=== PATIENT | female | born 1985 | race Caucasian/White ===

== ENCOUNTER 2018-08-20 14:30 | Outpatient (RCR) | payer MEDICARE, SELFPAY ==
--- NOTE | 2017-07-18 10:09 | PT.OTN ---
Addendum entered and electronically signed by Sonia Davila, PT 07/18/17 11:18: Transition note: On July 08, 2017 our therapy services consisting of Speech, Occupational, and Physical Therapy transitioned from the [employer] electronic documentation system to a new [employer] electronic documentation system.?? All documentation prior to July 08 can be found under [employer] saved data. From July 08 forward all medical record documentation will be in [employer]. Original Note: Current Diagnoses Pain in right shoulder (07/18/17) Pain in left hip (07/18/17) Stiffness of right shoulder, not elsewhere classified (07/18/17) Muscle weakness (generalized) (07/18/17) Anesthesia of skin (07/18/17) Abnormal posture (07/18/17) Presence of unspecified artificial shoulder joint (07/18/17) Physical Therapy Treatment Note PT-OP-A Visit Information Start: 07/18/17 09:01 Freq: Status: Active Protocol: Document 07/18/17 09:48 [facility] (Rec: 07/18/17 10:07 [facility] [email or web address]) Out-Patient Physical Therapy Visit Information Visit Information Visit Type Treatment Note Visit Start Time 09:00 Visit Stop Time 09:48 Total Visit Minutes 48 Visit Number 107 Number of POSTING MACHINE OPERATOR Visits 0 Evaluation Information Evaluation Date 04/05/15 PT-OP-C Subjective Start: 07/18/17 09:01 Freq: Status: Active Protocol: Document 07/18/17 09:48 [facility] (Rec: 07/18/17 10:07 [facility] [email or web address]) OP-PT Subjective Patient Comments Patient Comments Pt notes that she is having some joint stiffness, but no pain in the R shoulder. PT-OP-K Range of Motion Start: 07/18/17 09:01 Freq: Status: Active Protocol: Document 07/18/17 09:48 [facility] (Rec: 07/18/17 10:07 [facility] [email or web address]) Shoulder Goniometric Range of Motion Shoulder Measured in Degrees Right Passive Shoulder ROM WFL No Testing Position Supine External Rotation at 90 degrees 50 Abduction PT-OP-Q Treatments Start: 07/18/17 09:01 Freq: Status: Active Protocol: Document 07/18/17 09:48 [facility] (Rec: 07/18/17 10:07 [facility] [email or web address]) Therapeutic Exercises Sitting Exercises 5 Sitting Exercise Name Shoulder D1 flexion Side right Resistance 2 lbs Reps/Minutes 12 reps Comments tactile cuing of scapula 4 Sitting Exercise Name Shoulder horizontal abduction Side bilateral Resistance orange latex-free band Reps/Minutes 12 reps 3 Sitting Exercise Name Shoulder ER Side bilateral Resistance pink latex-free band Reps/Minutes 15 reps 2 Sitting Exercise Name Shoulder abduction Side right Resistance 1 lb Reps/Minutes 12 reps Comments tactile cuing of scapula 1 Sitting Exercise Name Shoulder flexion Side right Resistance 2 lbs Reps/Minutes 8 reps Comments tactile cuing of scapula Manual Therapy Treatment Soft Tissue Mobilization 2 Body Location Upper Trapezius Mobilization Type Strumming Intensity/Depth Moderate Body Position Supine Comments right 1 Body Location Rhomboids Mobilization Type Strain/Counterstrain Intensity/Depth Moderate Body Position Supine Comments right Joint Mobilizations 1 Joint GH joint Direction posterior and inferior Grade III Body Position Supine Reps/Duration 6 min. Manual Techniques 1 Type PROM- flexion, abduction, ER Body Location R shoulder Body Position Supine Reps/Duration 8 each PT-OP-R Modalities Start: 07/18/17 09:01 Freq: Status: Active Protocol: Document 07/18/17 09:48 [facility] (Rec: 07/18/17 10:07 [facility] [email or web address]) Hot Pack/Cold Pack Treatment Cold Pack Location R shoulder Patient Position Supine Treatment Duration (minutes) 10 Patient Tolerance Good Comments héctor PT-OP-T Assessment and Plan Start: 07/18/17 09:01 Freq: Status: Active Protocol: Document 07/18/17 09:48 [facility] (Rec: 07/18/17 10:07 [facility] [email or web address]) Physical Therapy Assessment Rehab Potential Rehabilitation Potential Good Impairments Impairments Activity Tolerance Functional Activities Posture ROM Soft Tissue Mobility Strength Goals 3 Impairment R shoulder ROM Decal Decorator Goal (LTG) R shoulder AROM: flexion 165 degrees (deg.), abduction 165 deg, ER with arm at side 60 deg, IR with arm at side 60 deg. LTG Duration 12 weeks 2 Impairment RUE weakness Decal Decorator Goal (LTG) R scapular elevation 5/5 R shoulder abduction, flexion, extension, ER, IR 4+/5 R elbow flexion, extension 4+/ 5 R wrist flexion, extension 4+/ 5 LTG Duration 12 weeks One Impairment QuickDASH score 45.45 Decal Decorator Goal (LTG) QuickDASH score of 15 or less prior to d/c. LTG Duration 12 weeks Progress Towards Goals Progress Towards Goals Slow Progress due to Medical Issues Assessment Summary Assessment Pt with tension in upper trap and rhomboids of the R shoulder, but good response to manual therapy and improved ROM after STR. Pt requires tactile cuing to prevent excessive upper trap activation with activities, but improved coordination of scapular upward rotation noted this session with lifting activities in elevation. Physical Therapy Plan Frequency and Duration Frequency of Treatment 1x/Week Duration of Treatment 12 weeks Plan of Care Start Date 06/13/17 Plan of Care End Date 09/04/17 Therapeutic Interventions Therapeutic Interventions Home Exercise Program Joint Mobilizations Manual Therapy Neuromuscular Re-education Patient/Caregiver Education Self-Care/Home Management Soft Tissue Mobilization Therapeutic Activities Therapeutic Exercises Modalities Cold Pack/Ice Massage Hot Packs Next Visit Focus/Plan Next Visit Plan continue to progress R shoulder strengthening, ROM as tolerated s/p R TSA.
--- NOTE | 2017-07-25 15:16 | PT.OTN ---
Current Diagnoses Pain in right shoulder (07/25/17) Pain in left hip (07/25/17) Stiffness of right shoulder, not elsewhere classified (07/25/17) Muscle weakness (generalized) (07/25/17) Anesthesia of skin (07/25/17) Abnormal posture (07/25/17) Presence of unspecified artificial shoulder joint (07/25/17) Physical Therapy Treatment Note PT-OP-A Visit Information Start: 07/18/17 09:01 Freq: Status: Active Protocol: Document 07/25/17 09:55 [facility] (Rec: 07/25/17 15:15 [facility] [email or web address]) Out-Patient Physical Therapy Visit Information Visit Information Visit Type Treatment Note Visit Note BP 92/56 at start of session. Visit Start Time 09:15 Visit Stop Time 09:55 Total Visit Minutes 40 Visit Number 108 Number of SAND MILL OPERATOR CORE SAND Visits 0 Evaluation Information Evaluation Date 04/05/15 PT-OP-C Subjective Start: 07/18/17 09:01 Freq: Status: Active Protocol: Document 07/25/17 09:55 [facility] (Rec: 07/25/17 15:15 [facility] [email or web address]) OP-PT Subjective Patient Comments Patient Comments Pt reports she may have had an episode of autonomic dysreflexia at home the other day. She reports it has not happened since but she became faint and had to fall into the couch. No injuries reported. Pt late this a.m. due to doctors appt upstairs. PT-OP-Q Treatments Start: 07/18/17 09:01 Freq: Status: Active Protocol: Document 07/25/17 09:55 [facility] (Rec: 07/25/17 15:15 [facility] [email or web address]) Therapeutic Exercises Sitting Exercises 6 Sitting Exercise Name bicep curls Side right Resistance 3 Reps/Minutes 15 reps 5 Sitting Exercise Name Shoulder D1 flexion Side right Resistance 2 lbs Reps/Minutes 12 reps Comments tactile cuing of scapula 4 Sitting Exercise Name Shoulder horizontal abduction Side bilateral Resistance orange latex-free band Reps/Minutes 15 reps 3 Sitting Exercise Name Shoulder ER Side bilateral Resistance pink latex-free band Reps/Minutes 15 reps Manual Therapy Treatment Joint Mobilizations [address] joint Direction lateral Grade III Body Position Supine Reps/Duration 4 min 1 Joint GH joint Direction posterior and inferior Grade III Body Position Supine Reps/Duration 6 min. Manual Techniques 1 Type PROM- flexion, abduction, ER, IR Body Location R shoulder Body Position Supine Reps/Duration 10 each PT-OP-R Modalities Start: 07/18/17 09:01 Freq: Status: Active Protocol: Document 07/25/17 09:55 [facility] (Rec: 07/25/17 15:15 [facility] [email or web address]) Hot Pack/Cold Pack Treatment Cold Pack Location R shoulder Patient Position Supine Treatment Duration (minutes) 10 Patient Tolerance Good Comments bolster PT-OP-T Assessment and Plan Start: 07/18/17 09:01 Freq: Status: Active Protocol: Document 07/25/17 09:55 [facility] (Rec: 07/25/17 15:15 [facility] [email or web address]) Physical Therapy Assessment Assessment Summary Assessment BP WNL for pt this date, no signs/symptoms of AD noted. Pt tolerated exercise well with improved scapular upward rotation with overhead RUE positioning. Pt still lacks strength and ROM in the RUE, and requires occasional cuing to prevent excessive UT initiation during activity. Physical Therapy Plan Frequency and Duration Frequency of Treatment 1x/Week Duration of Treatment 12 weeks Plan of Care Start Date 06/13/17 Plan of Care End Date 09/04/17 Next Visit Focus/Plan Next Visit Plan continue to progress R shoulder strengthening, ROM as tolerated s/p R TSA.
--- NOTE | 2017-08-01 11:19 | PT.OTN ---
Current Diagnoses Pain in right shoulder (08/01/17) Pain in left hip (08/01/17) Stiffness of right shoulder, not elsewhere classified (08/01/17) Muscle weakness (generalized) (08/01/17) Anesthesia of skin (08/01/17) Abnormal posture (08/01/17) Presence of unspecified artificial shoulder joint (08/01/17) Physical Therapy Treatment Note PT-OP-A Visit Information Start: 07/18/17 09:01 Freq: Status: Active Protocol: Document 08/01/17 09:45 [facility] (Rec: 08/01/17 11:19 [facility] [email or web address]) Out-Patient Physical Therapy Visit Information Visit Information Visit Type Treatment Note Visit Note BP 96/54 at start of session, [place] 90 bpm. Visit Start Time 09:00 Visit Stop Time 09:45 Total Visit Minutes 45 Visit Number 109 Number of CONTRACTING EXECUTIVE Visits 0 Evaluation Information Evaluation Date 04/05/15 PT-OP-C Subjective Start: 07/18/17 09:01 Freq: Status: Active Protocol: Document 08/01/17 09:45 [facility] (Rec: 08/01/17 11:19 [facility] [email or web address]) OP-PT Subjective Patient Comments Patient Comments Pt notes that she is still feeling weak with ER, but no pain reported in R shoulder the past week. PT-OP-Q Treatments Start: 07/18/17 09:01 Freq: Status: Active Protocol: Document 08/01/17 09:45 [facility] (Rec: 08/01/17 11:19 [facility] [email or web address]) Therapeutic Exercises Sitting Exercises 5 Sitting Exercise Name Shoulder D1 flexion Side right Resistance 2 lbs Reps/Minutes 14 reps Comments tactile cuing of scapula 4 Sitting Exercise Name Shoulder horizontal abduction Side bilateral Resistance orange latex-free band Reps/Minutes 15 reps 3 Sitting Exercise Name Shoulder ER Side bilateral Resistance pink latex-free band Reps/Minutes 15 reps Manual Therapy Treatment Soft Tissue Mobilization 1 Body Location Rhomboids Mobilization Type Strumming Intensity/Depth Moderate Body Position Supine Comments right Joint Mobilizations [address] joint Direction lateral Grade III Body Position Supine 1 Joint GH joint Direction posterior and inferior Grade III Body Position Supine Manual Techniques 1 Type PROM- flexion, abduction, ER, IR Body Location R shoulder Body Position Supine Reps/Duration 10 each PT-OP-R Modalities Start: 07/18/17 09:01 Freq: Status: Active Protocol: Document 08/01/17 09:45 [facility] (Rec: 08/01/17 11:19 [facility] [email or web address]) Hot Pack/Cold Pack Treatment Cold Pack Location R shoulder Patient Position Supine Treatment Duration (minutes) 10 Patient Tolerance Good Comments héctor PT-OP-T Assessment and Plan Start: 07/18/17 09:01 Freq: Status: Active Protocol: Document 08/01/17 09:45 [facility] (Rec: 08/01/17 11:19 [facility] [email or web address]) Physical Therapy Assessment Assessment Summary Assessment Pt requires manual assistance for full ROM in D1 flexion pattern, as well as excessive UT activation and shoulder elevation. Physical Therapy Plan Frequency and Duration Frequency of Treatment 1x/Week Duration of Treatment 12 weeks Plan of Care Start Date 06/13/17 Plan of Care End Date 09/04/17 Next Visit Focus/Plan Next Note Type Treatment Note Next Visit Plan progress ROM (Active and passive), shoulder girdle strengthening. Please Sign and Return: I have reviewed this Plan of Care and certify that the skilled therapy services above are required to meet the patient???s needs. Physician Signature Date Printed Name and Credentials Clinical Instructor Signature Printed Name and Credentials
--- NOTE | 2017-08-15 11:35 | PT.OTN ---
Current Diagnoses Pain in right shoulder (08/15/17) Pain in left hip (08/15/17) Stiffness of right shoulder, not elsewhere classified (08/15/17) Muscle weakness (generalized) (08/15/17) Anesthesia of skin (08/15/17) Abnormal posture (08/15/17) Presence of unspecified artificial shoulder joint (08/15/17) Physical Therapy Treatment Note PT-OP-A Visit Information Start: 07/18/17 09:01 Freq: Status: Active Protocol: Document 08/15/17 09:45 [facility] (Rec: 08/15/17 11:35 [facility] [email or web address]) Out-Patient Physical Therapy Visit Information Visit Information Visit Type Treatment Note Visit Start Time 09:00 Visit Stop Time 09:52 Total Visit Minutes 52 Visit Number 110 Number of CATALYST SUPERVISOR Visits 0 Evaluation Information Evaluation Date 04/05/15 PT-OP-C Subjective Start: 07/18/17 09:01 Freq: Status: Active Protocol: Document 08/15/17 09:45 [facility] (Rec: 08/15/17 11:35 [facility] [email or web address]) OP-PT Subjective Patient Comments Patient Comments Pt reports she has gained 6 lbs over the past couple of weeks with her , it has been a little more difficult maintaining her body positioning/posture. PT-OP-K Range of Motion Start: 07/18/17 09:01 Freq: Status: Active Protocol: Document 07/18/17 09:48 [facility] (Rec: 07/18/17 10:07 [facility] [email or web address]) Shoulder Goniometric Range of Motion Shoulder Measured in Degrees Right Passive Shoulder ROM WFL No Testing Position Supine External Rotation at 90 degrees 50 Abduction PT-OP-Q Treatments Start: 07/18/17 09:01 Freq: Status: Active Protocol: Document 08/15/17 09:45 [facility] (Rec: 08/15/17 11:35 [facility] [email or web address]) Therapeutic Exercises Sitting Exercises 6 Sitting Exercise Name bicep curls Side right Resistance 3 Reps/Minutes 15 reps 4 Sitting Exercise Name Shoulder horizontal abduction Side bilateral Resistance orange latex-free band Reps/Minutes 15 reps 2 Sitting Exercise Name Shoulder abduction Side right Resistance 1 lb Reps/Minutes 14 reps Comments tactile cuing of scapula 1 Sitting Exercise Name Shoulder flexion Side right Resistance 1 lbs Reps/Minutes 15 reps Comments tactile cuing of shoulder Manual Therapy Treatment Soft Tissue Mobilization 2 Body Location Upper Trapezius Mobilization Type Strumming Intensity/Depth Moderate Body Position Supine Comments right 1 Body Location Rhomboids Mobilization Type Strumming Intensity/Depth Moderate Body Position Supine Comments right Joint Mobilizations [address] joint Direction lateral Grade III Body Position Supine Manual Techniques 1 Type PROM- flexion, abduction, ER, IR Body Location R shoulder Body Position Supine Reps/Duration 10 each PT-OP-R Modalities Start: 07/18/17 09:01 Freq: Status: Active Protocol: Document 08/15/17 09:45 [facility] (Rec: 08/15/17 11:35 [email or web address] Hot Pack/Cold Pack Treatment Cold Pack Location R shoulder Patient Position Supine Treatment Duration (minutes) 10 Patient Tolerance Good Comments héctor PT-OP-T Assessment and Plan Start: 07/18/17 09:01 Freq: Status: Active Protocol: Document 08/15/17 09:45 [facility] (Rec: 08/15/17 11:35 [email or web address] Physical Therapy Assessment Assessment Summary Assessment Pt is able to get her RUE >90 degrees with 1 lb resistance, and ~90 degrees with shoulder abduction and 1 lb resistance, but fatigues quickly. Pt requires cuing for R shoulder and scapular positioning during activities. Physical Therapy Plan Frequency and Duration Frequency of Treatment 1x/Week Duration of Treatment 12 weeks Plan of Care Start Date 06/13/17 Plan of Care End Date 09/04/17 Next Visit Focus/Plan Next Note Type Treatment Note Next Visit Plan prog. ROM and strength s/p R TSA. Please Sign and Return: I have reviewed this Plan of Care and certify that the skilled therapy services above are required to meet the patient?s needs. Physician Signature Date Printed Name and Credentials Clinical Instructor Signature Printed Name and Credentials
--- NOTE | 2017-08-22 13:29 | PT.OTN ---
Current Diagnoses Pain in right shoulder (08/22/17) Pain in left hip (08/22/17) Stiffness of right shoulder, not elsewhere classified (08/22/17) Muscle weakness (generalized) (08/22/17) Anesthesia of skin (08/22/17) Abnormal posture (08/22/17) Presence of unspecified artificial shoulder joint (08/22/17) Physical Therapy Treatment Note PT-OP-A Visit Information Start: 07/18/17 09:01 Freq: Status: Active Protocol: Document 08/22/17 09:45 [facility] (Rec: 08/22/17 13:28 [facility] [email or web address]) Out-Patient Physical Therapy Visit Information Visit Information Visit Type Treatment Note Visit Start Time 09:00 Visit Stop Time 09:45 Total Visit Minutes 45 Visit Number 111 Number of CHEF UNDER Visits 0 Evaluation Information Evaluation Date 04/05/15 PT-OP-C Subjective Start: 07/18/17 09:01 Freq: Status: Active Protocol: Document 08/22/17 09:45 [facility] (Rec: 08/22/17 13:28 [facility] [email or web address]) OP-PT Subjective Patient Comments Patient Comments Pt reports soreness after last session but no pain in the R shoulder. PT-OP-K Range of Motion Start: 07/18/17 09:01 Freq: Status: Active Protocol: Document 07/18/17 09:48 [facility] (Rec: 07/18/17 10:07 [facility] [email or web address]) Shoulder Goniometric Range of Motion Shoulder Measured in Degrees Right Passive Shoulder ROM WFL No Testing Position Supine External Rotation at 90 degrees 50 Abduction PT-OP-Q Treatments Start: 07/18/17 09:01 Freq: Status: Active Protocol: Document 08/22/17 09:45 [facility] (Rec: 08/22/17 13:28 [facility] [email or web address]) Therapeutic Exercises Sitting Exercises 7 Sitting Exercise Name Shoulder extension and rows Side bilateral Resistance orange latex free Reps/Minutes 15 each 4 Sitting Exercise Name Shoulder horizontal abduction Side bilateral Resistance orange latex-free band Reps/Minutes 15 reps 3 Sitting Exercise Name Shoulder ER Side bilateral Resistance pink latex-free band Reps/Minutes 15 reps 2 Sitting Exercise Name Shoulder abduction Side right Resistance 2 lbs Reps/Minutes 10 reps Comments AROM then AAROM to full ROM 1 Sitting Exercise Name Shoulder flexion Side right Resistance 2 lbs Reps/Minutes 10 reps Comments AROM then AAROM to full ROM Manual Therapy Treatment Soft Tissue Mobilization 2 Body Location Upper Trapezius Mobilization Type Strumming Intensity/Depth Moderate Body Position Supine Comments right Joint Mobilizations 1 Joint GH joint Direction posterior and inferior Grade III Body Position Supine Manual Techniques 1 Type PROM- flexion, abduction, ER, IR Body Location R shoulder Body Position Supine Reps/Duration 10 each PT-OP-R Modalities Start: 07/18/17 09:01 Freq: Status: Active Protocol: Document 08/22/17 09:45 [facility] (Rec: 08/22/17 13:28 [email or web address] Hot [facility]/Cold Pack Treatment Cold Pack Location R shoulder Patient Position Supine Treatment Duration (minutes) 10 Patient Tolerance Good Comments héctor PT-OP-T Assessment and Plan Start: 07/18/17 09:01 Freq: Status: Active Protocol: Document 08/22/17 09:45 [facility] (Rec: 08/22/17 13:28 [email or web address] Physical Therapy Assessment Assessment Summary Assessment Pt able to increase resistance of shoulder flexion and abduction in seated position, but does require AAROM to achieve full end range with these activities due to impaired strength. Physical Therapy Plan Frequency and Duration Frequency of Treatment 1x/Week Duration of Treatment 12 weeks Plan of Care Start Date 06/13/17 Plan of Care End Date 09/04/17 Next Visit Focus/Plan Next Note Type Progress Note Next Visit Plan reassess objective measures. Please Sign and Return: I have reviewed this Plan of Care and certify that the skilled therapy services above are required to meet the patient?s needs. Physician Signature Date Printed Name and Credentials Clinical Instructor Signature Printed Name and Credentials
--- NOTE | 2017-08-29 09:45 | PT.OTN ---
Current Diagnoses Pain in right shoulder (08/29/17) Pain in left hip (08/29/17) Stiffness of right shoulder, not elsewhere classified (08/29/17) Muscle weakness (generalized) (08/29/17) Anesthesia of skin (08/29/17) Abnormal posture (08/29/17) Presence of unspecified artificial shoulder joint (08/29/17) Physical Therapy Treatment Note PT-OP-A Visit Information Start: 07/18/17 09:01 Freq: Status: Active Protocol: Document 08/29/17 09:45 [facility] (Rec: 08/31/17 14:13 [facility] [email or web address]) Out-Patient Physical Therapy Visit Information Visit Information Visit Type Treatment Note Visit Start Time 09:00 Visit Stop Time 09:55 Total Visit Minutes 55 Visit Number 112 (G codes @ 122) Number of CANDY CATCHER Visits 0 Evaluation Information Evaluation Date 04/05/15 PT-OP-B Current Condition Start: 08/31/17 13:42 Freq: Status: Active Protocol: Document 08/29/17 09:45 [facility] (Rec: 08/31/17 14:13 [facility] [email or web address]) Current Condition History of Current Condition Onset Date 12/14/14 History of Current Condition Pt presents to physical therapy s/p R TSA 12/14/2014 @ [facility]. Pt is R hand dominant. Pt uses a manual w/c for mobility, due to paraplegia at the level of T6. Pt is , mother is caregiver. Pt required a short term NG tube post surgery, then d/c to [facility] on 12/24/2014 . Pt then developed staph infection while at [facility]. Pt d/ c home and started PT on . Pt initiated outpatient physical therapy April 04, 2015. 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 Pt is currently with her first child. PT-OP-C Subjective Start: 07/18/17 09:01 Freq: Status: Active Protocol: Document 08/29/17 09:45 RCC (Rec: 08/31/17 14:13 RCC [email or web address]) OP-PT Subjective Patient Comments Patient Comments Pt notes some discomfort with lifting her RUE in the anterior shoulder, notes that it feels stiff. Her at this time is going very well per mother and pt. PT-OP-F Manual Assessment Start: 08/31/17 13:42 Freq: Status: Active Protocol: Document 08/29/17 09:45 RCC (Rec: 08/31/17 14:13 RCC [email or web address]) Manual Assessments Soft Tissue Assessment Soft Tissue Mobility Assessment moderate tenderness to palpation R biceps long head and tendon. PT-OP-G Mobility & Gait Start: 08/31/17 13:42 Freq: Status: Active Protocol: Document 08/29/17 09:45 RCC (Rec: 08/31/17 14:13 RCC [email or web address]) OP Mobility Evaluation Transfers Bed to Chair Transfers Mod Assist of 1 due to . PT-OP-J Posture/Palpation/Skin Start: 08/31/17 13:42 Freq: Status: Active Protocol: Document 08/29/17 09:45 RCC (Rec: 08/31/17 14:13 RCC [email or web address]) Palpation Assessment Location One Palpation Location R biceps long head and tendon Palpation Findings Tenderness Palpation Details negative Yuniel's sign, no bruising. Musculature intact. PT-OP-K Range of Motion Start: 07/18/17 09:01 Freq: Status: Active Protocol: Document 08/29/17 09:45 RCC (Rec: 08/31/17 14:13 RCC [email or web address]) Shoulder Goniometric Range of Motion Shoulder Measured in Degrees Right Active Testing Position Supine Flexion 122 Abduction 124 External Rotation at 45 degrees 36 Abduction Right Passive Testing Position Supine Flexion 145 Abduction 150 External Rotation at 45 degrees 60 Abduction Shoulder ROM Limitations Comments sitting AROM: abduction 104 deg, flexion 96 deg. (R shoulder) PT-OP-M Strength Start: 08/31/17 13:42 Freq: Status: Active Protocol: Document 08/29/17 09:45 RCC (Rec: 08/31/17 14:13 [facility] [email or web address]) Shoulder Strength Shoulder Manual Muscle Testing Right Flexion 4 Good Abduction (C5) 4+ Good+ External Rotation 4 Good Internal Rotation 5 Normal Elbow/Forearm Strength Elbow and Forearm Manual Muscle Testing Right Flexion (C6) 4+ Good+ Extension (C7) 4 Good Comments mild discomfort with resisted elbow flexion @ biceps tendon. Hand Applications Administrator/Pinch Strength Hand Dominance Hand Dominance Right Hand Strength Right Applications Administrator (lbs) 37 Comments Arm at side, elbow flexed 90 deg. Left Applications Administrator (lbs) 51 Comments Arm at side, elbow flexed 90 deg. PT-OP-Q Treatments Start: 07/18/17 09:01 Freq: Status: Active Protocol: Document 08/29/17 09:45 [facility] (Rec: 08/31/17 14:13 [facility] [email or web address]) Therapeutic Activity Therapeutic Activity 1 Name w/c to bed transfer, sit to supine Comments mod assist x1 Manual Therapy Treatment Soft Tissue Mobilization 3 Body Location R biceps long head and tendon Mobilization Type Cross-Friction Myofascial Release Intensity/Depth Moderate Body Position Supine Comments 15 min. Joint Mobilizations [address] joint Direction lateral Grade III Body Position Supine 1 Joint GH joint Direction posterior and inferior Grade III Body Position Supine Manual Techniques 1 Type PROM- flexion, abduction, ER, IR Body Location R shoulder Body Position Supine Reps/Duration 10 each Other Other Manual Treatments R shoulder ROM, UE MMT, palpation. 10 min PT-OP-R Modalities Start: 07/18/17 09:01 Freq: Status: Active Protocol: Document 08/29/17 09:45 [facility] (Rec: 08/31/17 14:13 [facility] [email or web address]) Hot Pack/Cold Pack Treatment Cold Pack Location R shoulder Patient Position Supine Treatment Duration (minutes) 10 Patient Tolerance Good Comments aguilarstestrella PT-OP-T Assessment and Plan Start: 07/18/17 09:01 Freq: Status: Active Protocol: Document 08/29/17 09:45 [facility] (Rec: 08/31/17 14:13 [facility] [email or web address]) Physical Therapy Assessment Goals 3 Impairment R shoulder ROM Carrier Driver Goal (LTG) R shoulder AROM: flexion 165 degrees (deg.), abduction 165 deg, ER with arm at side 60 deg, IR with arm at side 60 deg. LTG Duration 12 weeks 2 Impairment RUE weakness Fdc Goal (LTG) R scapular elevation 5/5 R shoulder abduction, flexion, extension, ER, IR 4+/5 R elbow flexion, extension 4+/ 5 R wrist flexion, extension 4+/ 5 LTG Duration 12 weeks One Impairment QuickDASH score 45.45 Fdc Goal (LTG) QuickDASH score of 15 or less prior to d/c. LTG Duration 12 weeks Progress Towards Goals Progress Towards Goals Slow Progress due to Medical Issues Progress Comments Pt with significant limitations in R shoulder ROM and strength prior to TSA ( injured nerve of the cervical spine causing atrophy and weakness of R shoulder girdle) , multiple medical complexities including T6 paraplegia. 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 Pt's ROM is still limited, and AROM seated with flexion likely slightly decreased this session due to tenderness in the long head of the biceps tendon. No mechanism of injury, but musculature is intact, therefore likely a strain of the muscle and over-activity of the biceps due to weakness in the R shoulder. Pt appears to have good compliance with HEP, she is on a lifting restriction due to her current which now she is requiring increased assistance with transfers. Pt's ER ROM improved significantly to 36 degrees AROM and 60 degrees PROM. Pt continues to demonstrate improvements with skilled outpatient physical therapy, and would greatly benefit from the continuation of physical therapy to continue to progress toward goals including ROM and strength gains of the R shoulder. Physical Therapy Plan Frequency and Duration Frequency of Treatment 1x/Week Duration of Treatment 12 weeks Plan of Care Start Date 08/29/17 Plan of Care End Date 11/21/17 Therapeutic Interventions Therapeutic Interventions Home Exercise Program Joint Mobilizations Manual Therapy Neuromuscular Re-education Patient/Caregiver Education Self-Care/Home Management Soft Tissue Mobilization Taping Therapeutic Activities Therapeutic Exercises Wheelchair Management Modalities Cold Pack/Ice Massage Hot Packs Next Visit Focus/Plan Next Note Type Treatment Note Next Visit Plan continue to progress ROM and strength of the R shoulder.
--- NOTE | 2017-08-29 09:45 | PT.OPPOC ---
Current Diagnoses Pain in right shoulder (08/29/17) Pain in left hip (08/29/17) Stiffness of right shoulder, not elsewhere classified (08/29/17) Muscle weakness (generalized) (08/29/17) Anesthesia of skin (08/29/17) Abnormal posture (08/29/17) Presence of unspecified artificial shoulder joint (08/29/17) Provider Visit Care Team Role Provider Type Cathleen Alfaro MD Attending Provider Physician Family Provider Primary Care Provider Specialty: Family Practice Address: [address] [place] [address], [facility] Email: Plan Of Care PT-OP-T Assessment and Plan Start: 07/18/17 09:01 Freq: Status: Active Protocol: Document 08/29/17 09:45 RCC (Rec: 08/31/17 14:13 [facility] [email or web address]) Physical Therapy Assessment Goals 3 Impairment R shoulder ROM Senior Power Scheduler Goal (LTG) R shoulder AROM: flexion 165 degrees (deg.), abduction 165 deg, ER with arm at side 60 deg, IR with arm at side 60 deg. LTG Duration 12 weeks 2 Impairment RUE weakness Senior Power Scheduler Goal (LTG) R scapular elevation 5/5 R shoulder abduction, flexion, extension, ER, IR 4+/5 R elbow flexion, extension 4+/ 5 R wrist flexion, extension 4+/ 5 LTG Duration 12 weeks One Impairment QuickDASH score 45.45 Senior Care Goal (LTG) QuickDASH score of 15 or less prior to d/c. LTG Duration 12 weeks Progress Towards Goals Progress Towards Goals Slow Progress due to Medical Issues Progress Comments Pt with significant limitations in R shoulder ROM and strength prior to TSA ( injured nerve of the cervical spine causing atrophy and weakness of R shoulder girdle) , multiple medical complexities including T6 paraplegia. 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 Pt's ROM is still limited, and AROM seated with flexion likely slightly decreased this session due to tenderness in the long head of the biceps tendon. No mechanism of injury, but musculature is intact, therefore likely a strain of the muscle and over-activity of the biceps due to weakness in the R shoulder. Pt appears to have good compliance with HEP, she is on a lifting restriction due to her current which now she is requiring increased assistance with transfers. Pt's ER ROM improved significantly to 36 degrees AROM and 60 degrees PROM. Pt continues to demonstrate improvements with skilled outpatient physical therapy, and would greatly benefit from the continuation of physical therapy to continue to progress toward goals including ROM and strength gains of the R shoulder. Physical Therapy Plan Frequency and Duration Frequency of Treatment 1x/Week Duration of Treatment 12 weeks Plan of Care Start Date 08/29/17 Plan of Care End Date 11/21/17 Therapeutic Interventions Therapeutic Interventions Home Exercise Program Joint Mobilizations Manual Therapy Neuromuscular Re-education Patient/Caregiver Education Self-Care/Home Management Soft Tissue Mobilization Taping Therapeutic Activities Therapeutic Exercises Wheelchair Management Modalities Cold Pack/Ice Massage Hot Packs Next Visit Focus/Plan Next Note Type Treatment Note Next Visit Plan continue to progress ROM and strength of the R shoulder. Plan of Care Dates Plan of Care Start Date 08/29/17 Plan of Care End Date 11/21/17 Please Sign and Return: I have reviewed this Plan of Care and certify that the skilled therapy services above are required to meet the patient?s needs. Physician Signature Date Printed Name and Credentials Clinical Instructor Signature Printed Name and Credentials
--- NOTE | 2017-09-26 12:00 | PT.OTN ---
Current Diagnoses Pain in right shoulder (09/26/17) Pain in left hip (09/26/17) Stiffness of right shoulder, not elsewhere classified (09/26/17) Muscle weakness (generalized) (09/26/17) Anesthesia of skin (09/26/17) Abnormal posture (09/26/17) Presence of unspecified artificial shoulder joint (09/26/17) Physical Therapy Treatment Note PT-OP-A Visit Information Start: 07/18/17 09:01 Freq: Status: Active Protocol: Document 09/26/17 12:00 RCC (Rec: 09/26/17 13:45 [facility] [email or web address]) Out-Patient Physical Therapy Visit Information Visit Information Visit Type Treatment Note Visit Start Time 11:15 Visit Stop Time 12:05 Total Visit Minutes 50 Visit Number 113 (G codes @ 122) Number of REFINERY OPERATOR LIGHT ENDS RECOVERY Visits 0 Evaluation Information Evaluation Date 04/05/15 PT-OP-B Current Condition Start: 08/31/17 13:42 Freq: Status: Active Protocol: Document 08/29/17 09:45 [facility] (Rec: 08/31/17 14:13 [facility] [email or web address]) Current Condition History of Current Condition Onset Date 12/14/14 History of Current Condition Pt presents to physical therapy s/p R TSA 12/14/2014 @ [facility]. Pt is R hand dominant. Pt uses a manual w/c for mobility, due to paraplegia at the level of T6. Pt is , mother is caregiver. Pt required a short term NG tube post surgery, then d/c to [facility] on 12/24/2014 . Pt then developed staph infection while at [facility]. Pt d/ c home and started PT on . Pt initiated outpatient physical therapy April 04, 2015. 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 Pt is currently with her first child. PT-OP-C Subjective Start: 07/18/17 09:01 Freq: Status: Active Protocol: Document 09/26/17 12:00 [facility] (Rec: 09/26/17 13:45 [facility] [email or web address]) OP-PT Subjective Patient Comments Patient Comments Pt notes her biceps is feeling a little better, her shoulder feels stiff today though. PT-OP-F Manual Assessment Start: 08/31/17 13:42 Freq: Status: Active Protocol: Document 08/29/17 09:45 [facility] (Rec: 08/31/17 14:13 [facility] [email or web address]) Manual Assessments Soft Tissue Assessment Soft Tissue Mobility Assessment moderate tenderness to palpation R biceps long head and tendon. PT-OP-G Mobility & Gait Start: 08/31/17 13:42 Freq: Status: Active Protocol: Document 08/29/17 09:45 [facility] (Rec: 08/31/17 14:13 [facility] [email or web address]) OP Mobility Evaluation Transfers Bed to Chair Transfers Mod Assist of 1 due to . PT-OP-J Posture/Palpation/Skin Start: 08/31/17 13:42 Freq: Status: Active Protocol: Document 08/29/17 09:45 RCC (Rec: 08/31/17 14:13 RCC [email or web address]) Palpation Assessment Location One Palpation Location R biceps long head and tendon Palpation Findings Tenderness Palpation Details negative Yuniel's sign, no bruising. Musculature intact. PT-OP-K Range of Motion Start: 07/18/17 09:01 Freq: Status: Active Protocol: Document 08/29/17 09:45 RCC (Rec: 08/31/17 14:13 RCC [email or web address]) Shoulder Goniometric Range of Motion Shoulder Measured in Degrees Right Active Testing Position Supine Flexion 122 Abduction 124 External Rotation at 45 degrees 36 Abduction Right Passive Testing Position Supine Flexion 145 Abduction 150 External Rotation at 45 degrees 60 Abduction Shoulder ROM Limitations Comments sitting AROM: abduction 104 deg, flexion 96 deg. (R shoulder) PT-OP-M Strength Start: 08/31/17 13:42 Freq: Status: Active Protocol: Document 08/29/17 09:45 RCC (Rec: 08/31/17 14:13 [facility] [email or web address]) Shoulder Strength Shoulder Manual Muscle Testing Right Flexion 4 Good Abduction (C5) 4+ Good+ External Rotation 4 Good Internal Rotation 5 Normal Elbow/Forearm Strength Elbow and Forearm Manual Muscle Testing Right Flexion (C6) 4+ Good+ Extension (C7) 4 Good Comments mild discomfort with resisted elbow flexion @ biceps tendon. Hand Aircraft Line Assembler/Pinch Strength Hand Dominance Hand Dominance Right Hand Strength Right Aircraft Line Assembler (lbs) 37 Comments Arm at side, elbow flexed 90 deg. Left Aircraft Line Assembler (lbs) 51 Comments Arm at side, elbow flexed 90 deg. PT-OP-Q Treatments Start: 07/18/17 09:01 Freq: Status: Active Protocol: Document 09/26/17 12:00 RCC (Rec: 09/26/17 13:45 [facility] [email or web address]) Therapeutic Exercises Sitting Exercises 7 Sitting Exercise Name Shoulder extension and rows Side bilateral Resistance orange latex free Reps/Minutes 15 each 4 Sitting Exercise Name Shoulder horizontal abduction Side bilateral Resistance orange latex-free band Reps/Minutes 15 reps 3 Sitting Exercise Name Shoulder ER Side bilateral Resistance pink latex-free band Reps/Minutes 15 reps Therapeutic Activity Therapeutic Activity 1 Name w/c to bed transfer with slide board x3, sit to supine Comments mod assist x1 Manual Therapy Treatment Soft Tissue Mobilization 3 Body Location R biceps long head and tendon Mobilization Type Cross-Friction Myofascial Release Intensity/Depth Moderate Body Position Supine Comments 6 min. Joint Mobilizations [address] joint Direction lateral Grade III Body Position Supine 1 Joint GH joint Direction posterior and inferior Grade III Body Position Supine Manual Techniques 1 Type PROM- flexion, abduction, ER, IR Body Location R shoulder Body Position Supine Reps/Duration 10 each PT-OP-R Modalities Start: 07/18/17 09:01 Freq: Status: Active Protocol: Document 09/26/17 12:00 [facility] (Rec: 09/26/17 13:45 [facility] [email or web address]) Hot Pack/Cold Pack Treatment Cold Pack Location R shoulder Patient Position Supine Treatment Duration (minutes) 10 Patient Tolerance Good Comments héctor PT-OP-T Assessment and Plan Start: 07/18/17 09:01 Freq: Status: Active Protocol: Document 09/26/17 12:00 [facility] (Rec: 09/26/17 13:45 [facility] [email or web address]) Physical Therapy Assessment Assessment Summary Assessment Pt initially with mild decrease in ROM, limited by soft tissue restriction but able to decrease restriction with manual ROM. Pt requires increased assistance with transfers due to increased weight gain and change COG due to . Physical Therapy Plan Frequency and Duration Frequency of Treatment 1x/Week Duration of Treatment 12 weeks Plan of Care Start Date 08/29/17 Plan of Care End Date 11/21/17 Next Visit Focus/Plan Next Note Type Treatment Note Next Visit Plan continue to progress ROM and strength of the R shoulder.
--- NOTE | 2017-10-02 10:30 | PT.OTN ---
Current Diagnoses Pain in right shoulder (10/02/17) Pain in left hip (10/02/17) Stiffness of right shoulder, not elsewhere classified (10/02/17) Muscle weakness (generalized) (10/02/17) Anesthesia of skin (10/02/17) Abnormal posture (10/02/17) Presence of unspecified artificial shoulder joint (10/02/17) Physical Therapy Treatment Note PT-OP-A Visit Information Start: 07/18/17 09:01 Freq: Status: Active Protocol: Document 10/02/17 10:30 RCC (Rec: 10/02/17 10:48 [facility] [email or web address]) Out-Patient Physical Therapy Visit Information Visit Information Visit Type Treatment Note Visit Start Time 09:45 Visit Stop Time 10:40 Total Visit Minutes 55 Visit Number 114 (G codes @ 122) Number of SCOWMAN Visits 0 Evaluation Information Evaluation Date 04/05/15 PT-OP-B Current Condition Start: 08/31/17 13:42 Freq: Status: Active Protocol: Document 08/29/17 09:45 RCC (Rec: 08/31/17 14:13 RCC [email or web address]) Current Condition History of Current Condition Onset Date 12/14/14 History of Current Condition Pt presents to physical therapy s[facility]p [facility] Pt is R hand dominant. Pt uses a manual w/c for mobility, due to paraplegia at the level of T6. Pt is , mother is caregiver. Pt required a short term NG tube post surgery, then d/c to [facility] on 12/24/2014 . Pt then developed staph infection while at [facility]. Pt d/ c home and started PT on . Pt initiated outpatient physical therapy April 04, 2015. 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 Pt is currently with her first child. PT-OP-C Subjective Start: 07/18/17 09:01 Freq: Status: Active Protocol: Document 10/02/17 10:30 RCC (Rec: 10/02/17 10:48 RCC [email or web address]) OP-PT Subjective Patient Comments Patient Comments Pt states that she is feeling a little less stiff. She has had some pain into the R lateral elbow. PT-OP-F Manual Assessment Start: 08/31/17 13:42 Freq: Status: Active Protocol: Document 10/02/17 10:30 RCC (Rec: 10/02/17 10:48 RCC [email or web address]) Manual Assessments Soft Tissue Assessment Soft Tissue Mobility Assessment mild tenderness over biceps long head tendon and lateral extensor bundle on the R. PT-OP-G Mobility & Gait Start: 08/31/17 13:42 Freq: Status: Active Protocol: Document 08/29/17 09:45 RCC (Rec: 08/31/17 14:13 RCC [email or web address]) OP Mobility Evaluation Transfers Bed to Chair Transfers Mod Assist of 1 due to . PT-OP-J Posture/Palpation/Skin Start: 08/31/17 13:42 Freq: Status: Active Protocol: Document 08/29/17 09:45 RCC (Rec: 08/31/17 14:13 RCC [email or web address]) Palpation Assessment Location One Palpation Location R biceps long head and tendon Palpation Findings Tenderness Palpation Details negative Yuniel's sign, no bruising. Musculature intact. PT-OP-K Range of Motion Start: 07/18/17 09:01 Freq: Status: Active Protocol: Document 08/29/17 09:45 RCC (Rec: 08/31/17 14:13 RCC [email or web address]) Shoulder Goniometric Range of Motion Shoulder Measured in Degrees Right Active Testing Position Supine Flexion 122 Abduction 124 External Rotation at 45 degrees 36 Abduction Right Passive Testing Position Supine Flexion 145 Abduction 150 External Rotation at 45 degrees 60 Abduction Shoulder ROM Limitations Comments sitting AROM: abduction 104 deg, flexion 96 deg. (R shoulder) PT-OP-M Strength Start: 08/31/17 13:42 Freq: Status: Active Protocol: Document 08/29/17 09:45 RCC (Rec: 08/31/17 14:13 RCC [email or web address]) Shoulder Strength Shoulder Manual Muscle Testing Right Flexion 4 Good Abduction (C5) 4+ Good+ External Rotation 4 Good Internal Rotation 5 Normal Elbow/Forearm Strength Elbow and Forearm Manual Muscle Testing Right Flexion (C6) 4+ Good+ Extension (C7) 4 Good Comments mild discomfort with resisted elbow flexion @ biceps tendon. Hand Physiotherapy Assistant/Pinch Strength Hand Dominance Hand Dominance Right Hand Strength Right Physiotherapy Assistant (lbs) 37 Comments Arm at side, elbow flexed 90 deg. Left Physiotherapy Assistant (lbs) 51 Comments Arm at side, elbow flexed 90 deg. PT-OP-Q Treatments Start: 07/18/17 09:01 Freq: Status: Active Protocol: Document 10/02/17 10:30 RCC (Rec: 10/02/17 10:48 RCC [email or web address]) Therapeutic Exercises Sitting Exercises 7 Sitting Exercise Name Shoulder extension and rows Side bilateral Resistance orange latex free Reps/Minutes 15 each 5 Sitting Exercise Name Shoulder D1 flexion Side right Resistance 2 lbs Reps/Minutes 15 reps Comments tactile cuing of scapula 3 Sitting Exercise Name Shoulder ER Side bilateral Resistance pink latex-free band Reps/Minutes 15 reps Therapeutic Activity Therapeutic Activity 1 Name w/c to bed transfer with slide board x2, sit to supine Comments mod assist x1 Manual Therapy Treatment Soft Tissue Mobilization 4 Body Location R infra and supraspinatus Mobilization Type Strumming Intensity/Depth Moderate Body Position Sitting 3 Body Location R biceps long head and tendon Mobilization Type Cross-Friction Myofascial Release Intensity/Depth Moderate Body Position Sitting 1 Body Location Rhomboids Mobilization Type Strumming Intensity/Depth Moderate Body Position Supine Comments right Joint Mobilizations [address] joint Direction lateral, upward rotation, medial Grade III Body Position Supine Manual Techniques 1 Type PROM- flexion, abduction, ER, IR Body Location R shoulder Body Position Supine Reps/Duration 10 each PT-OP-R Modalities Start: 07/18/17 09:01 Freq: Status: Active Protocol: Document 10/02/17 10:30 RCC (Rec: 10/02/17 10:48 [facility] [email or web address]) Hot Pack/Cold Pack Treatment Cold Pack Location R shoulder Patient Position Supine Treatment Duration (minutes) 10 Patient Tolerance Good Comments héctor PT-OP-T Assessment and Plan Start: 07/18/17 09:01 Freq: Status: Active Protocol: Document 10/02/17 10:30 RCC (Rec: 10/02/17 10:48 [facility] [email or web address]) Physical Therapy Assessment Assessment Summary Assessment Pt with increased push-off on first 2 movements of slide board transfer, but still requiring assistance with final 1-2 movements to get completely on the bed. Tenderness in biceps is improving, and lateral elbow discomfort likely due to referred pain from R shoulder. Physical Therapy Plan Frequency and Duration Frequency of Treatment 1x/Week Duration of Treatment 12 weeks Plan of Care Start Date 08/29/17 Plan of Care End Date 11/21/17 Next Visit Focus/Plan Next Note Type Treatment Note Next Visit Plan prog. ROM and strength s/p R TSA.
--- NOTE | 2018-02-04 16:45 | PT.OTN ---
Current Diagnoses Pain in right shoulder (02/04/18) Pain in left hip (02/04/18) Stiffness of right shoulder, not elsewhere classified (02/04/18) Muscle weakness (generalized) (02/04/18) Anesthesia of skin (02/04/18) Abnormal posture (02/04/18) Presence of unspecified artificial shoulder joint (02/04/18) Physical Therapy Treatment Note PT-OP-A Visit Information Start: 07/18/17 09:01 Freq: Status: Active Protocol: Document 02/04/18 16:45 RCC (Rec: 02/05/18 10:52 RCC [email or web address]) Out-Patient Physical Therapy Visit Information Visit Information Visit Type Treatment Note Visit Start Time 16:18 Visit Stop Time 16:45 Total Visit Minutes 27 Visit Number 115 (G codes @ 125) Number of SOCIAL WORK ASSOCIATE Visits 0 Evaluation Information Evaluation Date 04/05/15 PT-OP-B Current Condition Start: 08/31/17 13:42 Freq: Status: Active Protocol: Document 02/04/18 16:45 RCC (Rec: 02/05/18 10:52 RCC [email or web address]) Current Condition History of Current Condition Onset Date 12/14/14 History of Current Condition Pt presents to physical therapy s/p R TSA 12/14/2014 @ [facility]. Pt is R hand dominant. Pt uses a manual w/c for mobility, due to paraplegia at the level of T6. Pt is , mother is caregiver. Pt required a short term NG tube post surgery, then d/c to [facility] on 12/24/2014 . Pt then developed staph infection while at [facility]. Pt d/ c home and started PT on . Pt initiated outpatient physical therapy April 04, 2015. ADDENDUM: pt with clearance from PCP to return to/continue PT s/p of her first child on November 24, 2017. PT-OP-C Subjective Start: 07/18/17 09:01 Freq: Status: Active Protocol: Document 02/04/18 16:45 RCC (Rec: 02/05/18 10:52 RCC [email or web address]) OP-PT Subjective Patient Comments Patient Comments Pt states she feels less strong after not being able to participate in therapy due to the and complexities associated with her giving to her first child. PT-OP-F Manual Assessment Start: 08/31/17 13:42 Freq: Status: Active Protocol: Document 10/02/17 10:30 RCC (Rec: 10/02/17 10:48 RCC [email or web address]) Manual Assessments Soft Tissue Assessment Soft Tissue Mobility Assessment mild tenderness over biceps long head tendon and lateral extensor bundle on the R. PT-OP-G Mobility & Gait Start: 08/31/17 13:42 Freq: Status: Active Protocol: Document 02/04/18 16:45 RCC (Rec: 02/05/18 10:52 RCC [email or web address]) OP Mobility Evaluation Transfers Bed to Chair Transfers CGA on even surfaces Floor Transfers unable PT-OP-J Posture/Palpation/Skin Start: 08/31/17 13:42 Freq: Status: Active Protocol: Document 08/29/17 09:45 RCC (Rec: 08/31/17 14:13 RCC [email or web address]) Palpation Assessment Location One Palpation Location R biceps long head and tendon Palpation Findings Tenderness Palpation Details negative Yuniel's sign, no bruising. Musculature intact. PT-OP-K Range of Motion Start: 07/18/17 09:01 Freq: Status: Active Protocol: Document 02/04/18 16:45 RCC (Rec: 02/05/18 10:52 RCC [email or web address]) Shoulder Goniometric Range of Motion Shoulder Measured in Degrees Right Active Testing Position Supine Flexion 105 Abduction 109 External Rotation at 45 degrees 24 Abduction Right Passive Testing Position Supine Flexion 132 Abduction 133 External Rotation at 45 degrees 40 Abduction PT-OP-M Strength Start: 08/31/17 13:42 Freq: Status: Active Protocol: Document 02/04/18 16:45 RCC (Rec: 02/05/18 10:52 RCC [email or web address]) Shoulder Strength Shoulder Manual Muscle Testing Right Flexion 4- Good- Abduction (C5) 4- Good- External Rotation 4- Good- Internal Rotation 4 Good Elbow/Forearm Strength Elbow and Forearm Manual Muscle Testing Right Flexion (C6) 4 Good Extension (C7) 4- Good- Comments no pain Hand Cloth Mercerizing Supervisor/Pinch Strength Hand Strength Right Cloth Mercerizing Supervisor (lbs) 39 Comments Arm at side, elbow flexed 90 deg. Left Cloth Mercerizing Supervisor (lbs) 48 Comments Arm at side, elbow flexed 90 deg. PT-OP-Q Treatments Start: 07/18/17 09:01 Freq: Status: Active Protocol: Document 02/04/18 16:45 RCC (Rec: 02/05/18 10:52 [facility] [email or web address]) Manual Therapy Treatment Soft Tissue Mobilization 4 Body Location R infra and supraspinatus Mobilization Type Strumming Intensity/Depth Moderate Body Position Supine 2 Body Location Upper Trapezius Mobilization Type Strumming Intensity/Depth Moderate Body Position Supine Comments right Joint Mobilizations 1 Joint GH joint Direction posterior and inferior Grade III Body Position Supine Other Other Manual Treatments R shoulder ROM, UE MMT 8 min PT-OP-R Modalities Start: 07/18/17 09:01 Freq: Status: Active Protocol: Document 10/02/17 10:30 RCC (Rec: 10/02/17 10:48 RCC [email or web address]) Hot Pack/Cold Pack Treatment Cold Pack Location R shoulder Patient Position Supine Treatment Duration (minutes) 10 Patient Tolerance Good Comments héctor PT-OP-T Assessment and Plan Start: 07/18/17 09:01 Freq: Status: Active Protocol: Document 02/04/18 16:45 RCC (Rec: 02/05/18 10:52 [facility] [email or web address]) Physical Therapy Assessment Goals 3 Impairment R shoulder ROM Nut Chopper Goal (LTG) R shoulder AROM: flexion 165 degrees (deg.), abduction 165 deg, ER with arm at side 60 deg, IR with arm at side 60 deg. LTG Duration 12 weeks 2 Impairment RUE weakness Halfway Goal (LTG) R scapular elevation 5/5 R shoulder abduction, flexion, extension, ER, IR 4+/5 R elbow flexion, extension 4+/ 5 R wrist flexion, extension 4+/ 5 LTG Duration 12 weeks One Impairment Pt is unable to get on/off floor without assistance to play with her child Short Term Goal (STG) Pt will be able to get on/off floor with Min A to play with her child. STG Duration 6 weeks. Halfway Goal (LTG) Pt will be able to get on/off floor with supervision to play with her child. LTG Duration 12 weeks Assessment Summary Assessment Pt has regressed with her strength and ROM of the R shoulder, likely due to prolonged inability to participate in physical therapy. Pt is highly motivated to improve her strength and ROM, as well as her ability to function and participate in play with her child as he continues to develop and grow. Pt is a strong candidate for physical therapy to address the impairments of strength and ROM of the RUE, as well as progression of functional activities such as transfers to/from the floor to participate in play with her child. Given her multiple co- morbidities, pt will likely require prolonged period of rehabilitation to achieve these goals. Physical Therapy Plan Frequency and Duration Frequency of Treatment 1x/Week Duration of Treatment 12 weeks Plan of Care Start Date 02/04/18 Plan of Care End Date 04/29/18 Therapeutic Interventions Therapeutic Interventions Home Exercise Program Joint Mobilizations Manual Therapy Neuromuscular Re-education Patient/Caregiver Education Self-Care/Home Management Soft Tissue Mobilization Taping Therapeutic Activities Therapeutic Exercises Wheelchair Management Modalities Cold Pack/Ice Massage Hot Packs Next Visit Focus/Plan Next Note Type Treatment Note Next Visit Plan prog. ROM and strength s/p R TSA.
--- NOTE | 2018-02-04 16:45 | PT.OPPOC ---
Current Diagnoses Pain in right shoulder (02/04/18) Pain in left hip (02/04/18) Stiffness of right shoulder, not elsewhere classified (02/04/18) Muscle weakness (generalized) (02/04/18) Anesthesia of skin (02/04/18) Abnormal posture (02/04/18) Presence of unspecified artificial shoulder joint (02/04/18) Provider Visit Care Team Role Provider Type Cathleen Alfaro MD Attending Provider Physician Family Provider Primary Care Provider Specialty: Family Practice Address: [address] [place] [address], [facility] Email: Plan Of Care PT-OP-T Assessment and Plan Start: 07/18/17 09:01 Freq: Status: Active Protocol: Document 02/04/18 16:45 RCC (Rec: 02/05/18 10:52 RCC [email or web address]) Physical Therapy Assessment Goals 3 Impairment R shoulder ROM Final Assembly Worker Goal (LTG) R shoulder AROM: flexion 165 degrees (deg.), abduction 165 deg, ER with arm at side 60 deg, IR with arm at side 60 deg. LTG Duration 12 weeks 2 Impairment RUE weakness Final Assembly Worker Goal (LTG) R scapular elevation 5/5 R shoulder abduction, flexion, extension, ER, IR 4+/5 R elbow flexion, extension 4+/ 5 R wrist flexion, extension 4+/ 5 LTG Duration 12 weeks One Impairment Pt is unable to get on/off floor without assistance to play with her child Short Term Goal (STG) Pt will be able to get on/off floor with Min A to play with her child. STG Duration 6 weeks. Final Assembly Worker Goal (LTG) Pt will be able to get on/off floor with supervision to play with her child. LTG Duration 12 weeks Assessment Summary Assessment Pt has regressed with her strength and ROM of the R shoulder, likely due to prolonged inability to participate in physical therapy. Pt is highly motivated to improve her strength and ROM, as well as her ability to function and participate in play with her child as he continues to develop and grow. Pt is a strong candidate for physical therapy to address the impairments of strength and ROM of the RUE, as well as progression of functional activities such as transfers to/from the floor to participate in play with her child. Given her multiple co- morbidities, pt will likely require prolonged period of rehabilitation to achieve these goals. Physical Therapy Plan Frequency and Duration Frequency of Treatment 1x/Week Duration of Treatment 12 weeks Plan of Care Start Date 02/04/18 Plan of Care End Date 04/29/18 Therapeutic Interventions Therapeutic Interventions Home Exercise Program Joint Mobilizations Manual Therapy Neuromuscular Re-education Patient/Caregiver Education Self-Care/Home Management Soft Tissue Mobilization Taping Therapeutic Activities Therapeutic Exercises Wheelchair Management Modalities Cold Pack/Ice Massage Hot Packs Next Visit Focus/Plan Next Note Type Treatment Note Next Visit Plan prog. ROM and strength s/p R TSA. Plan of Care Dates Plan of Care Start Date 02/04/18 Plan of Care End Date 04/29/18 Please Sign and Return: I have reviewed this Plan of Care and certify that the skilled therapy services above are required to meet the patient?s needs. Physician Signature Date Printed Name and Credentials Clinical Instructor Signature Printed Name and Credentials
--- NOTE | 2018-02-12 16:04 | PT.OTN ---
Current Diagnoses Pain in right shoulder (02/12/18) Pain in left hip (02/12/18) Stiffness of right shoulder, not elsewhere classified (02/12/18) Muscle weakness (generalized) (02/12/18) Anesthesia of skin (02/12/18) Abnormal posture (02/12/18) Presence of unspecified artificial shoulder joint (02/12/18) Physical Therapy Treatment Note PT-OP-A Visit Information Start: 07/18/17 09:01 Freq: Status: Active Protocol: Document 02/12/18 16:04 RCC (Rec: 02/12/18 16:26 RCC [email or web address]) Out-Patient Physical Therapy Visit Information Visit Information Visit Type Treatment Note Visit Start Time 15:15 Visit Stop Time 16:04 Total Visit Minutes 49 Visit Number 116 (G codes @ 125) Number of FIBER OPTIC ASSEMBLY WORKER Visits 0 Evaluation Information Evaluation Date 04/05/15 PT-OP-B Current Condition Start: 08/31/17 13:42 Freq: Status: Active Protocol: Document 02/04/18 16:45 RCC (Rec: 02/05/18 10:52 RCC [email or web address]) Current Condition History of Current Condition Onset Date 12/14/14 History of Current Condition Pt presents to physical therapy s/p R TSA 12/14/2014 @ [facility]. Pt is R hand dominant. Pt uses a manual w/c for mobility, due to paraplegia at the level of T6. Pt is , mother is caregiver. Pt required a short term NG tube post surgery, then d/c to [facility] on 12/24/2014 . Pt then developed staph infection while at [facility]. Pt d/ c home and started PT on . Pt initiated outpatient physical therapy April 04, 2015. ADDENDUM: pt with clearance from PCP to return to/continue PT s/p of her first child on November 24, 2017. PT-OP-C Subjective Start: 07/18/17 09:01 Freq: Status: Active Protocol: Document 02/12/18 16:04 RCC (Rec: 02/12/18 16:26 RCC [email or web address]) OP-PT Subjective Patient Comments Patient Comments Pt reports that she still feels weak and stiff in the R shoulder. PT-OP-F Manual Assessment Start: 08/31/17 13:42 Freq: Status: Active Protocol: Document 10/02/17 10:30 RCC (Rec: 10/02/17 10:48 RCC [email or web address]) Manual Assessments Soft Tissue Assessment Soft Tissue Mobility Assessment mild tenderness over biceps long head tendon and lateral extensor bundle on the R. PT-OP-G Mobility & Gait Start: 08/31/17 13:42 Freq: Status: Active Protocol: Document 02/04/18 16:45 RCC (Rec: 02/05/18 10:52 RCC [email or web address]) OP Mobility Evaluation Transfers Bed to Chair Transfers CGA on even surfaces Floor Transfers unable PT-OP-J Posture/Palpation/Skin Start: 08/31/17 13:42 Freq: Status: Active Protocol: Document 08/29/17 09:45 RCC (Rec: 08/31/17 14:13 RCC [email or web address]) Palpation Assessment Location One Palpation Location R biceps long head and tendon Palpation Findings Tenderness Palpation Details negative Yuniel's sign, no bruising. Musculature intact. PT-OP-K Range of Motion Start: 07/18/17 09:01 Freq: Status: Active Protocol: Document 02/04/18 16:45 RCC (Rec: 02/05/18 10:52 RCC [email or web address]) Shoulder Goniometric Range of Motion Shoulder Measured in Degrees Right Active Testing Position Supine Flexion 105 Abduction 109 External Rotation at 45 degrees 24 Abduction Right Passive Testing Position Supine Flexion 132 Abduction 133 External Rotation at 45 degrees 40 Abduction PT-OP-M Strength Start: 08/31/17 13:42 Freq: Status: Active Protocol: Document 02/04/18 16:45 RCC (Rec: 02/05/18 10:52 RCC [email or web address]) Shoulder Strength Shoulder Manual Muscle Testing Right Flexion 4- Good- Abduction (C5) 4- Good- External Rotation 4- Good- Internal Rotation 4 Good Elbow/Forearm Strength Elbow and Forearm Manual Muscle Testing Right Flexion (C6) 4 Good Extension (C7) 4- Good- Comments no pain Hand Starcher And Tenter Range Feeder/Pinch Strength Hand Strength Right Starcher And Tenter Range Feeder (lbs) 39 Comments Arm at side, elbow flexed 90 deg. Left Starcher And Tenter Range Feeder (lbs) 48 Comments Arm at side, elbow flexed 90 deg. PT-OP-Q Treatments Start: 07/18/17 09:01 Freq: Status: Active Protocol: Document 02/12/18 16:04 RCC (Rec: 02/12/18 16:26 RCC [email or web address]) Therapeutic Exercises Supine Exercises supine punches Side right Resistance 2 lbs Reps/Minutes 1x15 flexion Supine Exercise Name shoulder flexion Side right Resistance 2 lbs Reps/Minutes 1x12 biceps curl Side right Resistance 4 lbs Reps/Minutes 2x10 horiz. abduction Supine Exercise Name horizontal abduction Side bilateral Resistance orange latex free Reps/Minutes 15 Manual Therapy Treatment Soft Tissue Mobilization 2 Body Location Upper Trapezius Mobilization Type Strumming Intensity/Depth Moderate Body Position Supine Comments right 1 Body Location Rhomboids Mobilization Type Strumming Intensity/Depth Moderate Body Position Supine Comments right Joint Mobilizations [address] joint Direction lateral, upward rotation, medial Grade III Body Position Supine 1 Joint GH joint Direction posterior and inferior Grade III Body Position Supine Manual Techniques 1 Type PROM- flexion, abduction, ER, IR Body Location R shoulder Body Position Supine Reps/Duration 10 each PT-OP-R Modalities Start: 07/18/17 09:01 Freq: Status: Active Protocol: Document 02/12/18 16:04 RCC (Rec: 02/12/18 16:26 [facility] [email or web address]) Hot Pack/Cold Pack Treatment Cold Pack Location R shoulder Patient Position Supine Treatment Duration (minutes) 8 Comments bolster PT-OP-T Assessment and Plan Start: 07/18/17 09:01 Freq: Status: Active Protocol: Document 02/12/18 16:04 RCC (Rec: 02/12/18 16:26 RCC [email or web address]) Physical Therapy Assessment Assessment Summary Assessment Pt tolerated strength training well, but also fatigues rapidly with exercise. She has improved PROM compared to previous session, and remains a strong candidate for progression of strength, ROM and function with physical therapy intervention. Physical Therapy Plan Frequency and Duration Frequency of Treatment 1x/Week Duration of Treatment 12 weeks Plan of Care Start Date 02/04/18 Plan of Care End Date 04/29/18 Next Visit Focus/Plan Next Note Type Treatment Note Next Visit Plan sitting strengthening activities, progress ROM
--- NOTE | 2018-02-18 16:45 | PT.OTN ---
Current Diagnoses Pain in right shoulder (02/18/18) Pain in left hip (02/18/18) Stiffness of right shoulder, not elsewhere classified (02/18/18) Muscle weakness (generalized) (02/18/18) Anesthesia of skin (02/18/18) Abnormal posture (02/18/18) Presence of unspecified artificial shoulder joint (02/18/18) Physical Therapy Treatment Note PT-OP-A Visit Information Start: 07/18/17 09:01 Freq: Status: Active Protocol: Document 02/18/18 16:45 [facility] (Rec: 02/18/18 17:41 [facility] [email or web address]) Out-Patient Physical Therapy Visit Information Visit Information Visit Type Treatment Note Visit Start Time 16:04 Visit Stop Time 16:50 Total Visit Minutes 46 Visit Number 117 (G codes @ 125) Number of ROLL OUT MANAGER Visits 0 Evaluation Information Evaluation Date 04/05/15 PT-OP-B Current Condition Start: 08/31/17 13:42 Freq: Status: Active Protocol: Document 02/04/18 16:45 RCC (Rec: 02/05/18 10:52 [facility] [email or web address]) Current Condition History of Current Condition Onset Date 12/14/14 History of Current Condition Pt presents to physical therapy s/p R TSA 12/14/2014 @ [facility]. Pt is R hand dominant. Pt uses a manual w/c for mobility, due to paraplegia at the level of T6. Pt is , mother is caregiver. Pt required a short term NG tube post surgery, then d/c to [facility] on 12/24/2014 . Pt then developed staph infection while at [facility]. Pt d/ c home and started PT on . Pt initiated outpatient physical therapy April 04, 2015. ADDENDUM: pt with clearance from PCP to return to/continue PT s/p of her first child on November 24, 2017. PT-OP-C Subjective Start: 07/18/17 09:01 Freq: Status: Active Protocol: Document 02/18/18 16:45 RCC (Rec: 02/18/18 17:41 [facility] [email or web address]) OP-PT Subjective Patient Comments Patient Comments Pt was sore after last session , but was able to still manage picking up her child. PT-OP-F Manual Assessment Start: 08/31/17 13:42 Freq: Status: Active Protocol: Document 10/02/17 10:30 RCC (Rec: 10/02/17 10:48 RCC [email or web address]) Manual Assessments Soft Tissue Assessment Soft Tissue Mobility Assessment mild tenderness over biceps long head tendon and lateral extensor bundle on the R. PT-OP-G Mobility & Gait Start: 08/31/17 13:42 Freq: Status: Active Protocol: Document 02/04/18 16:45 RCC (Rec: 02/05/18 10:52 RCC [email or web address]) OP Mobility Evaluation Transfers Bed to Chair Transfers CGA on even surfaces Floor Transfers unable PT-OP-J Posture/Palpation/Skin Start: 08/31/17 13:42 Freq: Status: Active Protocol: Document 08/29/17 09:45 RCC (Rec: 08/31/17 14:13 RCC [email or web address]) Palpation Assessment Location One Palpation Location R biceps long head and tendon Palpation Findings Tenderness Palpation Details negative Yuniel's sign, no bruising. Musculature intact. PT-OP-K Range of Motion Start: 07/18/17 09:01 Freq: Status: Active Protocol: Document 02/04/18 16:45 RCC (Rec: 02/05/18 10:52 RCC [email or web address]) Shoulder Goniometric Range of Motion Shoulder Measured in Degrees Right Active Testing Position Supine Flexion 105 Abduction 109 External Rotation at 45 degrees 24 Abduction Right Passive Testing Position Supine Flexion 132 Abduction 133 External Rotation at 45 degrees 40 Abduction PT-OP-M Strength Start: 08/31/17 13:42 Freq: Status: Active Protocol: Document 02/04/18 16:45 RCC (Rec: 02/05/18 10:52 RCC [email or web address]) Shoulder Strength Shoulder Manual Muscle Testing Right Flexion 4- Good- Abduction (C5) 4- Good- External Rotation 4- Good- Internal Rotation 4 Good Elbow/Forearm Strength Elbow and Forearm Manual Muscle Testing Right Flexion (C6) 4 Good Extension (C7) 4- Good- Comments no pain Hand Wheel Lacer And Truer/Pinch Strength Hand Strength Right Wheel Lacer And Truer (lbs) 39 Comments Arm at side, elbow flexed 90 deg. Left Wheel Lacer And Truer (lbs) 48 Comments Arm at side, elbow flexed 90 deg. PT-OP-Q Treatments Start: 07/18/17 09:01 Freq: Status: Active Protocol: Document 02/18/18 16:45 RCC (Rec: 02/18/18 17:41 [facility] [email or web address]) Therapeutic Exercises Supine Exercises supine punches Side bilateral Resistance 2 lbs Reps/Minutes 1x15 biceps curl Side right Resistance 4 lbs Reps/Minutes x20 Sitting Exercises flexion Sitting Exercise Name shoulder flexion Side bilateral Resistance 1 lb Reps/Minutes x10 Comments flexion R to 90 deg. abduction Sitting Exercise Name shoulder abduction Side bilateral Resistance 1 lb Reps/Minutes x10 Comments abduction R to 90 deg 7 Sitting Exercise Name Shoulder extension and rows Side bilateral Resistance orange latex free Reps/Minutes 15 each Manual Therapy Treatment Soft Tissue Mobilization 1 Body Location Rhomboids Mobilization Type Strumming Intensity/Depth Moderate Body Position Supine Comments right Joint Mobilizations [address] joint Direction lateral, upward rotation, medial Grade IV Body Position Supine Manual Techniques 1 Type PROM- flexion, abduction, ER, IR Body Location R shoulder Body Position Supine Reps/Duration 10 each PT-OP-R Modalities Start: 07/18/17 09:01 Freq: Status: Active Protocol: Document 02/18/18 16:45 RCC (Rec: 02/18/18 17:41 [facility] [email or web address]) Hot Pack/Cold Pack Treatment Cold Pack Location R shoulder Patient Position Supine Treatment Duration (minutes) 10 Comments bolster PT-OP-T Assessment and Plan Start: 07/18/17 09:01 Freq: Status: Active Protocol: Document 02/18/18 16:45 RCC (Rec: 02/18/18 17:41 [facility] [email or web address]) Physical Therapy Assessment Assessment Summary Assessment Pt able to perform seated shoulder flexion and abduction with 1 lb resistance to 90 degrees, but fatigues and requires cuing to prevent upper trapezius activation and shoulder elevation during exercises. Physical Therapy Plan Frequency and Duration Frequency of Treatment 1x/Week Duration of Treatment 12 weeks Plan of Care Start Date 02/04/18 Plan of Care End Date 04/29/18 Next Visit Focus/Plan Next Note Type Treatment Note Next Visit Plan continue to progress R shoulder strengthening s/p R TSA
--- NOTE | 2018-03-05 16:00 | PT.OTN ---
Current Diagnoses Pain in right shoulder (03/05/18) Pain in left hip (03/05/18) Stiffness of right shoulder, not elsewhere classified (03/05/18) Muscle weakness (generalized) (03/05/18) Anesthesia of skin (03/05/18) Abnormal posture (03/05/18) Presence of unspecified artificial shoulder joint (03/05/18) Physical Therapy Treatment Note PT-OP-A Visit Information Start: 07/18/17 09:01 Freq: Status: Active Protocol: Document 03/05/18 16:00 RCC (Rec: 03/05/18 17:25 [facility] [email or web address]) Out-Patient Physical Therapy Visit Information Visit Information Visit Type Treatment Note Visit Start Time 15:20 Visit Stop Time 16:08 Total Visit Minutes 48 Visit Number 118 (G codes @ 125) Number of ACTUARIAL CLERK Visits 0 Evaluation Information Evaluation Date 04/05/15 PT-OP-B Current Condition Start: 08/31/17 13:42 Freq: Status: Active Protocol: Document 02/04/18 16:45 RCC (Rec: 02/05/18 10:52 [facility] [email or web address]) Current Condition History of Current Condition Onset Date 12/14/14 History of Current Condition Pt presents to physical therapy s/p R TSA 12/14/2014 @ [facility]. Pt is R hand dominant. Pt uses a manual w/c for mobility, due to paraplegia at the level of T6. Pt is , mother is caregiver. Pt required a short term NG tube post surgery, then d/c to [facility] on 12/24/2014 . Pt then developed staph infection while at [facility]. Pt d/ c home and started PT on . Pt initiated outpatient physical therapy April 04, 2015. ADDENDUM: pt with clearance from PCP to return to/continue PT s/p of her first child on November 24, 2017. PT-OP-C Subjective Start: 07/18/17 09:01 Freq: Status: Active Protocol: Document 03/05/18 16:00 [facility] (Rec: 03/05/18 17:25 [facility] [email or web address]) OP-PT Subjective Patient Comments Patient Comments Pt with no new complaints initially. After performing horizontal abduction exercise with resistance, she had increased anterior shoulder pain. PT-OP-F Manual Assessment Start: 08/31/17 13:42 Freq: Status: Active Protocol: Document 03/05/18 16:00 RCC (Rec: 03/05/18 17:25 [facility] [email or web address]) Manual Assessments Soft Tissue Assessment Soft Tissue Mobility Assessment tenderness to palpation R biceps brachii long head tendon PT-OP-G Mobility & Gait Start: 08/31/17 13:42 Freq: Status: Active Protocol: Document 02/04/18 16:45 RCC (Rec: 02/05/18 10:52 [facility] [email or web address]) OP Mobility Evaluation Transfers Bed to Chair Transfers CGA on even surfaces Floor Transfers unable PT-OP-J Posture/Palpation/Skin Start: 08/31/17 13:42 Freq: Status: Active Protocol: Document 08/29/17 09:45 RCC (Rec: 08/31/17 14:13 RCC [email or web address]) Palpation Assessment Location One Palpation Location R biceps long head and tendon Palpation Findings Tenderness Palpation Details negative Yuniel's sign, no bruising. Musculature intact. PT-OP-K Range of Motion Start: 07/18/17 09:01 Freq: Status: Active Protocol: Document 02/04/18 16:45 RCC (Rec: 02/05/18 10:52 [facility] [email or web address]) Shoulder Goniometric Range of Motion Shoulder Measured in Degrees Right Active Testing Position Supine Flexion 105 Abduction 109 External Rotation at 45 degrees 24 Abduction Right Passive Testing Position Supine Flexion 132 Abduction 133 External Rotation at 45 degrees 40 Abduction PT-OP-M Strength Start: 08/31/17 13:42 Freq: Status: Active Protocol: Document 02/04/18 16:45 RCC (Rec: 02/05/18 10:52 [facility] [email or web address]) Shoulder Strength Shoulder Manual Muscle Testing Right Flexion 4- Good- Abduction (C5) 4- Good- External Rotation 4- Good- Internal Rotation 4 Good Elbow/Forearm Strength Elbow and Forearm Manual Muscle Testing Right Flexion (C6) 4 Good Extension (C7) 4- Good- Comments no pain Hand Restaurant Associate/Pinch Strength Hand Strength Right Restaurant Associate (lbs) 39 Comments Arm at side, elbow flexed 90 deg. Left Restaurant Associate (lbs) 48 Comments Arm at side, elbow flexed 90 deg. PT-OP-Q Treatments Start: 07/18/17 09:01 Freq: Status: Active Protocol: Document 03/05/18 16:00 RCC (Rec: 03/05/18 17:25 RCC [email or web address]) Therapeutic Exercises Sitting Exercises 7 Sitting Exercise Name Shoulder extension and rows Side bilateral Resistance orange latex free Reps/Minutes 15 each 4 Sitting Exercise Name Shoulder horizontal abduction Side bilateral Resistance orange latex-free band Reps/Minutes 4 reps Comments increased pain R anterior shoulder, discontinued Manual Therapy Treatment Soft Tissue Mobilization 3 Body Location R biceps long head and tendon Mobilization Type Myofascial Release Rolling Intensity/Depth Superficial Body Position Sitting 1 Body Location Rhomboids Mobilization Type Strumming Intensity/Depth Moderate Body Position Supine Comments right Joint Mobilizations [address] joint Direction lateral, upward rotation, medial Grade IV Body Position Supine 1 Joint GH joint Direction posterior and inferior Grade III Body Position Supine Manual Techniques 1 Type PROM- flexion, abduction, ER, IR Body Location R shoulder Body Position Supine Reps/Duration 10 each PT-OP-R Modalities Start: 07/18/17 09:01 Freq: Status: Active Protocol: Document 03/05/18 16:00 [facility] (Rec: 03/05/18 17:25 [facility] [email or web address]) Hot Pack/Cold Pack Treatment Cold Pack Location R shoulder Patient Position Supine Treatment Duration (minutes) 10 Comments bolster PT-OP-T Assessment and Plan Start: 07/18/17 09:01 Freq: Status: Active Protocol: Document 03/05/18 16:00 [facility] (Rec: 03/05/18 17:25 [facility] [email or web address]) Physical Therapy Assessment Assessment Summary Assessment Pt appeared to have strained the head of the biceps brachii today with horizontal abduction exercise. Biceps was tender to palpation, no tenderness noted in the anterior deltoid or pectorals. Treatment was modified to more manual therapy for pain control due to strain of the biceps, and educated pt on caution over the next week to not aggravate this. Physical Therapy Plan Frequency and Duration Frequency of Treatment 1x/Week Duration of Treatment 12 weeks Plan of Care Start Date 02/04/18 Plan of Care End Date 04/29/18 Next Visit Focus/Plan Next Note Type Treatment Note Next Visit Plan assess biceps, progress with R shoulder strengthening with caution (attempt no resistance first with movements/motions) and advance ROM
--- NOTE | 2018-03-13 09:45 | PT.OTN ---
Current Diagnoses Pain in right shoulder (03/13/18) Pain in left hip (03/13/18) Stiffness of right shoulder, not elsewhere classified (03/13/18) Muscle weakness (generalized) (03/13/18) Anesthesia of skin (03/13/18) Abnormal posture (03/13/18) Presence of unspecified artificial shoulder joint (03/13/18) Physical Therapy Treatment Note PT-OP-A Visit Information Start: 07/18/17 09:01 Freq: Status: Active Protocol: Document 03/13/18 09:40 [facility] (Rec: 03/13/18 09:44 [facility] [email or web address]) Out-Patient Physical Therapy Visit Information Visit Information Visit Type Treatment Note Visit Start Time 09:00 Visit Stop Time 09:45 Total Visit Minutes 45 Visit Number 119 (G codes @ 125) Number of HOUSE SUPERINTENDENT Visits 0 Evaluation Information Evaluation Date 04/05/15 PT-OP-B Current Condition Start: 08/31/17 13:42 Freq: Status: Active Protocol: Document 02/04/18 16:45 [facility] (Rec: 02/05/18 10:52 RCC [email or web address]) Current Condition History of Current Condition Onset Date 12/14/14 History of Current Condition Pt presents to physical therapy s/p R TSA 12/14/2014 @ [facility]. Pt is R hand dominant. Pt uses a manual w/c for mobility, due to paraplegia at the level of T6. Pt is , mother is caregiver. Pt required a short term NG tube post surgery, then d/c to [facility] on 12/24/2014 . Pt then developed staph infection while at [facility]. Pt d/ c home and started PT on . Pt initiated outpatient physical therapy April 04, 2015. ADDENDUM: pt with clearance from PCP to return to/continue PT s/p of her first child on November 24, 2017. PT-OP-C Subjective Start: 07/18/17 09:01 Freq: Status: Active Protocol: Document 03/13/18 09:40 RCC (Rec: 03/13/18 09:44 RCC [email or web address]) OP-PT Subjective Patient Comments Patient Comments Pt states her anterior shoulder was a little sore but getting much better this past week. PT-OP-F Manual Assessment Start: 08/31/17 13:42 Freq: Status: Active Protocol: Document 03/13/18 09:40 RCC (Rec: 03/13/18 09:44 RCC [email or web address]) Manual Assessments Soft Tissue Assessment Soft Tissue Mobility Assessment slight tenderness to palpation R biceps brachii long head tendon PT-OP-G Mobility & Gait Start: 08/31/17 13:42 Freq: Status: Active Protocol: Document 02/04/18 16:45 RCC (Rec: 02/05/18 10:52 RCC [email or web address]) OP Mobility Evaluation Transfers Bed to Chair Transfers CGA on even surfaces Floor Transfers unable PT-OP-J Posture/Palpation/Skin Start: 08/31/17 13:42 Freq: Status: Active Protocol: Document 08/29/17 09:45 RCC (Rec: 08/31/17 14:13 RCC [email or web address]) Palpation Assessment Location One Palpation Location R biceps long head and tendon Palpation Findings Tenderness Palpation Details negative Yuniel's sign, no bruising. Musculature intact. PT-OP-K Range of Motion Start: 07/18/17 09:01 Freq: Status: Active Protocol: Document 02/04/18 16:45 [facility] (Rec: 02/05/18 10:52 [facility] [email or web address]) Shoulder Goniometric Range of Motion Shoulder Measured in Degrees Right Active Testing Position Supine Flexion 105 Abduction 109 External Rotation at 45 degrees 24 Abduction Right Passive Testing Position Supine Flexion 132 Abduction 133 External Rotation at 45 degrees 40 Abduction PT-OP-M Strength Start: 08/31/17 13:42 Freq: Status: Active Protocol: Document 02/04/18 16:45 [facility] (Rec: 02/05/18 10:52 RCC [email or web address]) Shoulder Strength Shoulder Manual Muscle Testing Right Flexion 4- Good- Abduction (C5) 4- Good- External Rotation 4- Good- Internal Rotation 4 Good Elbow/Forearm Strength Elbow and Forearm Manual Muscle Testing Right Flexion (C6) 4 Good Extension (C7) 4- Good- Comments no pain Hand Can Technician/Pinch Strength Hand Strength Right Can Technician (lbs) 39 Comments Arm at side, elbow flexed 90 deg. Left Can Technician (lbs) 48 Comments Arm at side, elbow flexed 90 deg. PT-OP-Q Treatments Start: 07/18/17 09:01 Freq: Status: Active Protocol: Document 03/13/18 09:40 [facility] (Rec: 03/13/18 09:44 [facility] [email or web address]) Manual Therapy Treatment Soft Tissue Mobilization 3 Body Location R biceps long head and tendon Mobilization Type Myofascial Release Rolling Intensity/Depth Superficial Body Position Sitting 1 Body Location Rhomboids Mobilization Type Strumming Intensity/Depth Moderate Body Position Supine Comments right Joint Mobilizations [address] joint Direction lateral, upward rotation, medial Grade IV Body Position Supine 1 Joint GH joint Direction posterior and inferior Grade III Body Position Supine Manual Techniques 1 Type PROM- flexion, abduction, ER, IR Body Location R shoulder Body Position Supine Reps/Duration 10 each PT-OP-R Modalities Start: 07/18/17 09:01 Freq: Status: Active Protocol: Document 03/13/18 09:40 [facility] (Rec: 03/13/18 09:44 [facility] [email or web address]) Hot Pack/Cold Pack Treatment Cold Pack Location R shoulder Patient Position Supine Treatment Duration (minutes) 10 Comments bolster PT-OP-T Assessment and Plan Start: 07/18/17 09:01 Freq: Status: Active Protocol: Document 03/13/18 09:40 [facility] (Rec: 03/13/18 09:44 [facility] [email or web address]) Physical Therapy Assessment Assessment Summary Assessment Pt with slight tenderness to the biceps brachii today, but improved since previous session. Strengthening held today due to allowing the biceps heal more until progressing back to strength training gradually. Pt's PROM is improving and more mobility with upward rotation of the scapula today. Physical Therapy Plan Frequency and Duration Frequency of Treatment 1x/Week Duration of Treatment 12 weeks Plan of Care Start Date 02/04/18 Plan of Care End Date 04/29/18 Next Visit Focus/Plan Next Note Type Treatment Note Next Visit Plan progress gradually back to R shoulder strengthening- AROM without resistance first
--- NOTE | 2018-03-20 09:45 | PT.OTN ---
Current Diagnoses Pain in right shoulder (03/20/18) Pain in left hip (03/20/18) Stiffness of right shoulder, not elsewhere classified (03/20/18) Muscle weakness (generalized) (03/20/18) Anesthesia of skin (03/20/18) Abnormal posture (03/20/18) Presence of unspecified artificial shoulder joint (03/20/18) Physical Therapy Treatment Note PT-OP-A Visit Information Start: 07/18/17 09:01 Freq: Status: Active Protocol: Document 03/20/18 09:45 [facility] (Rec: 03/21/18 14:58 [facility] [email or web address]) Out-Patient Physical Therapy Visit Information Visit Information Visit Type Treatment Note Visit Start Time 09:03 Visit Stop Time 09:50 Total Visit Minutes 47 Visit Number 120 (G codes @ 125) Number of STEM THRESHING MACHINE OPERATOR Visits 0 Evaluation Information Evaluation Date 04/05/15 PT-OP-B Current Condition Start: 08/31/17 13:42 Freq: Status: Active Protocol: Document 02/04/18 16:45 [facility] (Rec: 02/05/18 10:52 [facility] [email or web address]) Current Condition History of Current Condition Onset Date 12/14/14 History of Current Condition Pt presents to physical therapy s/p R TSA 12/14/2014 @ [facility]. Pt is R hand dominant. Pt uses a manual w/c for mobility, due to paraplegia at the level of T6. Pt is , mother is caregiver. Pt required a short term NG tube post surgery, then d/c to [facility] on 12/24/2014 . Pt then developed staph infection while at [facility]. Pt d/ c home and started PT on . Pt initiated outpatient physical therapy April 04, 2015. ADDENDUM: pt with clearance from PCP to return to/continue PT s/p of her first child on November 24, 2017. PT-OP-C Subjective Start: 07/18/17 09:01 Freq: Status: Active Protocol: Document 03/20/18 09:45 [facility] (Rec: 03/21/18 14:58 RCC [email or web address]) OP-PT Subjective Patient Comments Patient Comments Pt states she has had no increase in pain over the past week in the R shoulder. PT-OP-F Manual Assessment Start: 08/31/17 13:42 Freq: Status: Active Protocol: Document 03/13/18 09:40 [facility] (Rec: 03/13/18 09:44 [facility] [email or web address]) Manual Assessments Soft Tissue Assessment Soft Tissue Mobility Assessment slight tenderness to palpation R biceps brachii long head tendon PT-OP-G Mobility & Gait Start: 08/31/17 13:42 Freq: Status: Active Protocol: Document 02/04/18 16:45 [facility] (Rec: 02/05/18 10:52 [facility] [email or web address]) OP Mobility Evaluation Transfers Bed to Chair Transfers CGA on even surfaces Floor Transfers unable PT-OP-J Posture/Palpation/Skin Start: 08/31/17 13:42 Freq: Status: Active Protocol: Document 08/29/17 09:45 [facility] (Rec: 08/31/17 14:13 [facility] [email or web address]) Palpation Assessment Location One Palpation Location R biceps long head and tendon Palpation Findings Tenderness Palpation Details negative Yuniel's sign, no bruising. Musculature intact. PT-OP-K Range of Motion Start: 07/18/17 09:01 Freq: Status: Active Protocol: Document 02/04/18 16:45 [facility] (Rec: 02/05/18 10:52 [facility] [email or web address]) Shoulder Goniometric Range of Motion Shoulder Measured in Degrees Right Active Testing Position Supine Flexion 105 Abduction 109 External Rotation at 45 degrees 24 Abduction Right Passive Testing Position Supine Flexion 132 Abduction 133 External Rotation at 45 degrees 40 Abduction PT-OP-M Strength Start: 08/31/17 13:42 Freq: Status: Active Protocol: Document 02/04/18 16:45 [facility] (Rec: 02/05/18 10:52 [facility] [email or web address]) Shoulder Strength Shoulder Manual Muscle Testing Right Flexion 4- Good- Abduction (C5) 4- Good- External Rotation 4- Good- Internal Rotation 4 Good Elbow/Forearm Strength Elbow and Forearm Manual Muscle Testing Right Flexion (C6) 4 Good Extension (C7) 4- Good- Comments no pain Hand School Services Officer/Pinch Strength Hand Strength Right School Services Officer (lbs) 39 Comments Arm at side, elbow flexed 90 deg. Left School Services Officer (lbs) 48 Comments Arm at side, elbow flexed 90 deg. PT-OP-Q Treatments Start: 07/18/17 09:01 Freq: Status: Active Protocol: Document 03/20/18 09:45 [facility] (Rec: 03/21/18 14:58 [facility] [email or web address]) Therapeutic Exercises Sitting Exercises ER Side bilateral Resistance pink latex-free Reps/Minutes 1x10 biceps curls Side bilateral Resistance 3 lbs Reps/Minutes 1x12 flexion Sitting Exercise Name shoulder flexion Side bilateral Resistance 1 lb Reps/Minutes x10 Comments flexion R to 90 deg. abduction Sitting Exercise Name shoulder abduction Side bilateral Resistance 1 lb Reps/Minutes x10 Comments abduction R to 90 deg 4 Sitting Exercise Name Shoulder horizontal abduction Side bilateral Resistance pink latex-free band Reps/Minutes 10 reps Comments no pain but fatigued Manual Therapy Treatment Soft Tissue Mobilization 3 Body Location R biceps long head and tendon Mobilization Type Myofascial Release Rolling Intensity/Depth Superficial Body Position Sitting 1 Body Location Rhomboids Mobilization Type Strumming Intensity/Depth Moderate Body Position Supine Comments right Joint Mobilizations [address] joint Direction lateral, upward rotation, medial Grade IV Body Position Supine 1 Joint GH joint Direction posterior and inferior Grade III Body Position Supine Manual Techniques 1 Type PROM- flexion, abduction, ER, IR Body Location R shoulder Body Position Supine Reps/Duration 10 each PT-OP-R Modalities Start: 07/18/17 09:01 Freq: Status: Active Protocol: Document 03/20/18 09:45 [facility] (Rec: 03/21/18 14:58 [facility] [email or web address]) Hot Pack/Cold Pack Treatment Cold Pack Location R shoulder Patient Position Supine Treatment Duration (minutes) 10 Comments [email or web address] PT-OP-T Assessment and Plan Start: 07/18/17 09:01 Freq: Status: Active Protocol: Document 03/20/18 09:45 [facility] (Rec: 03/21/18 14:58 [facility] [email or web address]) Physical Therapy Assessment Assessment Summary Assessment Pt tolerated resistance with sitting exercises with fatigue but no c/o pain. Added seated resisted abduction, flexion of the shoulder and biceps curls to her HEP. Physical Therapy Plan Frequency and Duration Frequency of Treatment 1x/Week Duration of Treatment 12 weeks Plan of Care Start Date 02/04/18 Plan of Care End Date 04/29/18 Next Visit Focus/Plan Next Note Type Treatment Note Next Visit Plan progress R shoulder ROM as tolerated, advance HEP
--- NOTE | 2018-04-02 15:15 | PT.OTN ---
Current Diagnoses Pain in right shoulder (04/02/18) Pain in left hip (04/02/18) Stiffness of right shoulder, not elsewhere classified (04/02/18) Muscle weakness (generalized) (04/02/18) Anesthesia of skin (04/02/18) Abnormal posture (04/02/18) Presence of unspecified artificial shoulder joint (04/02/18) Physical Therapy Treatment Note PT-OP-A Visit Information Start: 07/18/17 09:01 Freq: Status: Active Protocol: Document 04/02/18 15:15 [facility] (Rec: 04/02/18 16:26 [facility] [email or web address]) Out-Patient Physical Therapy Visit Information Visit Information Visit Type Treatment Note Visit Start Time 15:15 Visit Stop Time 16:00 Total Visit Minutes 45 Visit Number 121 (G codes @ 125) Number of MANAGER GENERAL Visits 0 Evaluation Information Evaluation Date 04/05/15 PT-OP-B Current Condition Start: 08/31/17 13:42 Freq: Status: Active Protocol: Document 02/04/18 16:45 [facility] (Rec: 02/05/18 10:52 [facility] [email or web address]) Current Condition History of Current Condition Onset Date 12/14/14 History of Current Condition Pt presents to physical therapy s/p R TSA 12/14/2014 @ [facility]. Pt is R hand dominant. Pt uses a manual w/c for mobility, due to paraplegia at the level of T6. Pt is , mother is caregiver. Pt required a short term NG tube post surgery, then d/c to [facility] on 12/24/2014 . Pt then developed staph infection while at [facility]. Pt d/ c home and started PT on . Pt initiated outpatient physical therapy April 04, 2015. ADDENDUM: pt with clearance from PCP to return to/continue PT s/p of her first child on November 24, 2017. PT-OP-C Subjective Start: 07/18/17 09:01 Freq: Status: Active Protocol: Document 04/02/18 15:15 [facility] (Rec: 04/02/18 16:26 [facility] [email or web address]) OP-PT Subjective Patient Comments Patient Comments Pt was sick last week, feeling better but did have a fall on Friday with leg bruising and general aching and pain in bilateral shoulders, back and neck. PT-OP-F Manual Assessment Start: 08/31/17 13:42 Freq: Status: Active Protocol: Document 04/02/18 15:15 RCC (Rec: 04/02/18 16:26 [facility] [email or web address]) Manual Assessments Soft Tissue Assessment Soft Tissue Mobility Assessment Moderate tension L UT and levator, mild R UT and levator PT-OP-G Mobility & Gait Start: 08/31/17 13:42 Freq: Status: Active Protocol: Document 02/04/18 16:45 RCC (Rec: 02/05/18 10:52 [facility] [email or web address]) OP Mobility Evaluation Transfers Bed to Chair Transfers CGA on even surfaces Floor Transfers unable PT-OP-J Posture/Palpation/Skin Start: 08/31/17 13:42 Freq: Status: Active Protocol: Document 08/29/17 09:45 RCC (Rec: 08/31/17 14:13 RCC [email or web address]) Palpation Assessment Location One Palpation Location R biceps long head and tendon Palpation Findings Tenderness Palpation Details negative Yuniel's sign, no bruising. Musculature intact. PT-OP-K Range of Motion Start: 07/18/17 09:01 Freq: Status: Active Protocol: Document 02/04/18 16:45 [facility] (Rec: 02/05/18 10:52 [facility] [email or web address]) Shoulder Goniometric Range of Motion Shoulder Measured in Degrees Right Active Testing Position Supine Flexion 105 Abduction 109 External Rotation at 45 degrees 24 Abduction Right Passive Testing Position Supine Flexion 132 Abduction 133 External Rotation at 45 degrees 40 Abduction PT-OP-M Strength Start: 08/31/17 13:42 Freq: Status: Active Protocol: Document 02/04/18 16:45 [facility] (Rec: 02/05/18 10:52 [facility] [email or web address]) Shoulder Strength Shoulder Manual Muscle Testing Right Flexion 4- Good- Abduction (C5) 4- Good- External Rotation 4- Good- Internal Rotation 4 Good Elbow/Forearm Strength Elbow and Forearm Manual Muscle Testing Right Flexion (C6) 4 Good Extension (C7) 4- Good- Comments no pain Hand Supply Coordinator/Pinch Strength Hand Strength Right Supply Coordinator (lbs) 39 Comments Arm at side, elbow flexed 90 deg. Left Supply Coordinator (lbs) 48 Comments Arm at side, elbow flexed 90 deg. PT-OP-Q Treatments Start: 07/18/17 09:01 Freq: Status: Active Protocol: Document 04/02/18 15:15 [facility] (Rec: 04/02/18 16:26 [facility] [email or web address]) Manual Therapy Treatment Soft Tissue Mobilization upper trapezius and levator Body Location bilateral Mobilization Type Manual Lymphatic Drainage Rolling Strumming Intensity/Depth Moderate Body Position Sitting 1 Body Location Rhomboids Mobilization Type Strumming Intensity/Depth Moderate Body Position Sitting Comments bilateral Joint Mobilizations [address] joint Direction lateral, upward rotation, medial Grade IV Body Position Sitting Manual Techniques 1 Type PROM- flexion, abduction, ER, IR Body Location R shoulder Body Position Supine Reps/Duration 10 each PT-OP-R Modalities Start: 07/18/17 09:01 Freq: Status: Active Protocol: Document 04/02/18 15:15 [facility] (Rec: 04/02/18 16:26 [facility] [email or web address]) Hot Pack/Cold Pack Treatment Hot Pack Location B neck and shoulders Patient Position Hooklying Treatment Duration (minutes) 10 Patient Tolerance Good Comments BLEs on bolsters with Dycem PT-OP-T Assessment and Plan Start: 07/18/17 09:01 Freq: Status: Active Protocol: Document 04/02/18 15:15 [facility] (Rec: 04/02/18 16:26 [facility] [email or web address]) Physical Therapy Assessment Assessment Summary Assessment Pt s/p fall in bathroom on Friday03/30/18, with bilateral LE bruising and increased tension in bilateral neck and shoulders. Pt did not lose any PROM due to fall, but was limited to manual therapy today due to pt's c/o pain and discomfort in bilateral upper body. Physical Therapy Plan Frequency and Duration Frequency of Treatment 1x/Week Duration of Treatment 12 weeks Plan of Care Start Date 02/04/18 Plan of Care End Date 04/29/18 Next Visit Focus/Plan Next Note Type Treatment Note Next Visit Plan re-assess soft tissue in neck and shoulders, progress strengthening if tolerable.
--- NOTE | 2018-04-09 15:23 | PT.OTN ---
Current Diagnoses Pain in right shoulder (04/09/18) Pain in left hip (04/09/18) Stiffness of right shoulder, not elsewhere classified (04/09/18) Muscle weakness (generalized) (04/09/18) Anesthesia of skin (04/09/18) Abnormal posture (04/09/18) Presence of unspecified artificial shoulder joint (04/09/18) Physical Therapy Treatment Note PT-OP-A Visit Information Start: 07/18/17 09:01 Freq: Status: Active Protocol: Document 04/09/18 15:23 [facility] (Rec: 04/09/18 16:31 [facility] [email or web address]) Out-Patient Physical Therapy Visit Information Visit Information Visit Type Treatment Note Visit Start Time 15:23 Visit Stop Time 16:03 Total Visit Minutes 40 Visit Number 122 (G codes @ 125) Number of CRACKING MACHINE OPERATOR Visits 0 Evaluation Information Evaluation Date 04/05/15 PT-OP-B Current Condition Start: 08/31/17 13:42 Freq: Status: Active Protocol: Document 02/04/18 16:45 [facility] (Rec: 02/05/18 10:52 [facility] [email or web address]) Current Condition History of Current Condition Onset Date 12/14/14 History of Current Condition Pt presents to physical therapy s/p R TSA 12/14/2014 @ [facility]. Pt is R hand dominant. Pt uses a manual w/c for mobility, due to paraplegia at the level of T6. Pt is , mother is caregiver. Pt required a short term NG tube post surgery, then d/c to [facility] on 12/24/2014 . Pt then developed staph infection while at [facility]. Pt d/ c home and started PT on . Pt initiated outpatient physical therapy April 04, 2015. ADDENDUM: pt with clearance from PCP to return to/continue PT s/p of her first child on November 24, 2017. PT-OP-C Subjective Start: 07/18/17 09:01 Freq: Status: Active Protocol: Document 04/09/18 15:23 [facility] (Rec: 04/09/18 16:31 [facility] [email or web address]) OP-PT Subjective Patient Comments Patient Comments Pt still stiff but feeling a little better s/p fall last week. PT-OP-F Manual Assessment Start: 08/31/17 13:42 Freq: Status: Active Protocol: Document 04/02/18 15:15 [facility] (Rec: 04/02/18 16:26 [facility] [email or web address]) Manual Assessments Soft Tissue Assessment Soft Tissue Mobility Assessment Moderate tension L UT and levator, mild R UT and levator PT-OP-G Mobility & Gait Start: 08/31/17 13:42 Freq: Status: Active Protocol: Document 02/04/18 16:45 [facility] (Rec: 02/05/18 10:52 [facility] [email or web address]) OP Mobility Evaluation Transfers Bed to Chair Transfers CGA on even surfaces Floor Transfers unable PT-OP-J Posture/Palpation/Skin Start: 08/31/17 13:42 Freq: Status: Active Protocol: Document 08/29/17 09:45 [facility] (Rec: 08/31/17 14:13 [facility] [email or web address]) Palpation Assessment Location One Palpation Location R biceps long head and tendon Palpation Findings Tenderness Palpation Details negative Yuniel's sign, no bruising. Musculature intact. PT-OP-K Range of Motion Start: 07/18/17 09:01 Freq: Status: Active Protocol: Document 02/04/18 16:45 [facility] (Rec: 02/05/18 10:52 [facility] [email or web address]) Shoulder Goniometric Range of Motion Shoulder Measured in Degrees Right Active Testing Position Supine Flexion 105 Abduction 109 External Rotation at 45 degrees 24 Abduction Right Passive Testing Position Supine Flexion 132 Abduction 133 External Rotation at 45 degrees 40 Abduction PT-OP-M Strength Start: 08/31/17 13:42 Freq: Status: Active Protocol: Document 02/04/18 16:45 [facility] (Rec: 02/05/18 10:52 [facility] [email or web address]) Shoulder Strength Shoulder Manual Muscle Testing Right Flexion 4- Good- Abduction (C5) 4- Good- External Rotation 4- Good- Internal Rotation 4 Good Elbow/Forearm Strength Elbow and Forearm Manual Muscle Testing Right Flexion (C6) 4 Good Extension (C7) 4- Good- Comments no pain Hand Field Service Representative/Pinch Strength Hand Strength Right Field Service Representative (lbs) 39 Comments Arm at side, elbow flexed 90 deg. Left Field Service Representative (lbs) 48 Comments Arm at side, elbow flexed 90 deg. PT-OP-Q Treatments Start: 07/18/17 09:01 Freq: Status: Active Protocol: Document 04/09/18 15:23 RCC (Rec: 04/09/18 16:31 [facility] [email or web address]) Therapeutic Exercises Sitting Exercises ER Side bilateral Resistance pink latex-free Reps/Minutes 1x10 flexion Sitting Exercise Name shoulder flexion Side bilateral Resistance 1 lb Reps/Minutes x10 Comments flexion R to 90 deg. abduction Sitting Exercise Name shoulder abduction Side bilateral Resistance 1 lb Reps/Minutes x10 Comments abduction R to 90 deg 7 Sitting Exercise Name Shoulder extension and rows Side bilateral Resistance orange latex free Reps/Minutes 15 each Manual Therapy Treatment Soft Tissue Mobilization upper trapezius and levator Body Location bilateral Mobilization Type Manual Lymphatic Drainage Rolling Strumming Intensity/Depth Moderate Body Position Supine 1 Body Location Rhomboids Mobilization Type Strumming Intensity/Depth Moderate Body Position Sitting Comments bilateral Joint Mobilizations [address] joint Direction lateral, upward rotation, medial Grade IV Body Position Sitting 1 Joint GH joint Direction posterior and inferior Grade III Body Position Supine Manual Techniques 1 Type PROM- flexion, abduction, ER, IR Body Location R shoulder Body Position Supine Reps/Duration 10 each PT-OP-R Modalities Start: 07/18/17 09:01 Freq: Status: Active Protocol: Document 04/09/18 15:23 [facility] (Rec: 04/09/18 16:31 [facility] [email or web address]) Hot Pack/Cold Pack Treatment Hot Pack Location B neck and shoulders Patient Position Hooklying Treatment Duration (minutes) 10 Patient Tolerance Good Comments BLEs on bolsters with Dycem PT-OP-T Assessment and Plan Start: 07/18/17 09:01 Freq: Status: Active Protocol: Document 04/09/18 15:23 [facility] (Rec: 04/09/18 16:31 [facility] [email or web address]) Physical Therapy Assessment Assessment Summary Assessment Pt able to tolerate R shoulder strengthening today, but still with levator and UT tension bilaterally. R shoulder strengthening to 90 degrees in abduction and flexion, evident fatigue. Physical Therapy Plan Frequency and Duration Frequency of Treatment 1x/Week Duration of Treatment 12 weeks Plan of Care Start Date 02/04/18 Plan of Care End Date 04/29/18 Next Visit Focus/Plan Next Note Type Treatment Note Next Visit Plan prog. R shoulder strengthening and ROM as tolerated.
--- NOTE | 2018-04-16 15:15 | PT.OTN ---
Current Diagnoses Pain in right shoulder (04/16/18) Pain in left hip (04/16/18) Stiffness of right shoulder, not elsewhere classified (04/16/18) Muscle weakness (generalized) (04/16/18) Anesthesia of skin (04/16/18) Abnormal posture (04/16/18) Presence of unspecified artificial shoulder joint (04/16/18) Physical Therapy Treatment Note PT-OP-A Visit Information Start: 07/18/17 09:01 Freq: Status: Active Protocol: Document 04/16/18 15:15 [facility] (Rec: 04/17/18 10:16 [facility] [email or web address]) Out-Patient Physical Therapy Visit Information Visit Information Visit Type Treatment Note Visit Start Time 15:15 Visit Stop Time 15:55 Total Visit Minutes 40 Visit Number 123 (G codes @ 125) Number of HARD METALS HAND ENGRAVER Visits 0 Evaluation Information Evaluation Date 04/05/15 PT-OP-B Current Condition Start: 08/31/17 13:42 Freq: Status: Active Protocol: Document 02/04/18 16:45 [facility] (Rec: 02/05/18 10:52 [facility] [email or web address]) Current Condition History of Current Condition Onset Date 12/14/14 History of Current Condition Pt presents to physical therapy s/p R TSA 12/14/2014 @ [facility]. Pt is R hand dominant. Pt uses a manual w/c for mobility, due to paraplegia at the level of T6. Pt is , mother is caregiver. Pt required a short term NG tube post surgery, then d/c to [facility] on 12/24/2014 . Pt then developed staph infection while at [facility]. Pt d/ c home and started PT on . Pt initiated outpatient physical therapy April 04, 2015. ADDENDUM: pt with clearance from PCP to return to/continue PT s/p of her first child on November 24, 2017. PT-OP-C Subjective Start: 07/18/17 09:01 Freq: Status: Active Protocol: Document 04/16/18 15:15 RCC (Rec: 04/17/18 10:16 RCC [email or web address]) OP-PT Subjective Patient Comments Patient Comments Pt now without c/o generalized soreness s/p fall out of w/c 2 weeks ago. PT-OP-F Manual Assessment Start: 08/31/17 13:42 Freq: Status: Active Protocol: Document 04/02/18 15:15 RCC (Rec: 04/02/18 16:26 RCC [email or web address]) Manual Assessments Soft Tissue Assessment Soft Tissue Mobility Assessment Moderate tension L UT and levator, mild R UT and levator PT-OP-G Mobility & Gait Start: 08/31/17 13:42 Freq: Status: Active Protocol: Document 02/04/18 16:45 [facility] (Rec: 02/05/18 10:52 [facility] [email or web address]) OP Mobility Evaluation Transfers Bed to Chair Transfers CGA on even surfaces Floor Transfers unable PT-OP-J Posture/Palpation/Skin Start: 08/31/17 13:42 Freq: Status: Active Protocol: Document 08/29/17 09:45 [facility] (Rec: 08/31/17 14:13 RCC [email or web address]) Palpation Assessment Location One Palpation Location R biceps long head and tendon Palpation Findings Tenderness Palpation Details negative Yuniel's sign, no bruising. Musculature intact. PT-OP-K Range of Motion Start: 07/18/17 09:01 Freq: Status: Active Protocol: Document 04/16/18 15:15 RCC (Rec: 04/17/18 10:16 [facility] [email or web address]) Shoulder Goniometric Range of Motion Shoulder ROM Limitations Comments AROM R shoulder flexion to 100 deg and abduction to 95 deg with 1 lb resistance PT-OP-M Strength Start: 08/31/17 13:42 Freq: Status: Active Protocol: Document 02/04/18 16:45 [facility] (Rec: 02/05/18 10:52 [facility] [email or web address]) Shoulder Strength Shoulder Manual Muscle Testing Right Flexion 4- Good- Abduction (C5) 4- Good- External Rotation 4- Good- Internal Rotation 4 Good Elbow/Forearm Strength Elbow and Forearm Manual Muscle Testing Right Flexion (C6) 4 Good Extension (C7) 4- Good- Comments no pain Hand Footwear Sales Representative/Pinch Strength Hand Strength Right Footwear Sales Representative (lbs) 39 Comments Arm at side, elbow flexed 90 deg. Left Footwear Sales Representative (lbs) 48 Comments Arm at side, elbow flexed 90 deg. PT-OP-Q Treatments Start: 07/18/17 09:01 Freq: Status: Active Protocol: Document 04/16/18 15:15 RCC (Rec: 04/17/18 10:16 [facility] [email or web address]) Therapeutic Exercises Supine Exercises supine punches Side bilateral Resistance 3 lbs Reps/Minutes 1x25 Sitting Exercises ER Side bilateral Resistance pink latex-free Reps/Minutes 1x10 biceps curls Side bilateral Resistance 3 lbs Reps/Minutes 1x15 flexion Sitting Exercise Name shoulder flexion Side bilateral Resistance 1 lb Reps/Minutes x10 Comments flexion R to 100 deg. abduction Sitting Exercise Name shoulder abduction Side bilateral Resistance 1 lb Reps/Minutes x10 Comments abduction R to 95 deg 7 Sitting Exercise Name Shoulder extension and rows Side bilateral Resistance orange latex free Reps/Minutes 15 each Manual Therapy Treatment Soft Tissue Mobilization upper trapezius and levator Body Location right Mobilization Type Manual Lymphatic Drainage Rolling Strumming Intensity/Depth Moderate Body Position Supine 1 Body Location Rhomboids Mobilization Type Strumming Intensity/Depth Moderate Body Position Sitting Comments bilateral Joint Mobilizations [address] joint Direction lateral, upward rotation, medial Grade IV Body Position Sitting Manual Techniques 1 Type PROM- flexion, abduction, ER, IR Body Location R shoulder Body Position Supine Reps/Duration 10 each PT-OP-T Assessment and Plan Start: 07/18/17 09:01 Freq: Status: Active Protocol: Document 04/16/18 15:15 RCC (Rec: 04/17/18 10:16 [facility] [email or web address]) Physical Therapy Assessment Assessment Summary Assessment Pt without c/o pain during session, did not want to ice today on the R shoulder. Improved AROM with resistance to 100 degrees and 95 degrees with shoulder flexion and extension, respectfully. Physical Therapy Plan Frequency and Duration Frequency of Treatment 1x/Week Duration of Treatment 12 weeks Plan of Care Start Date 02/04/18 Plan of Care End Date 04/29/18 Next Visit Focus/Plan Next Note Type Progress Note Next Visit Plan reassess obj measures
--- NOTE | 2018-05-15 13:45 | PT.OTN ---
Current Diagnoses Pain in right shoulder (05/15/18) Pain in left hip (05/15/18) Stiffness of right shoulder, not elsewhere classified (05/15/18) Muscle weakness (generalized) (05/15/18) Anesthesia of skin (05/15/18) Abnormal posture (05/15/18) Presence of unspecified artificial shoulder joint (05/15/18) Physical Therapy Treatment Note PT-OP-A Visit Information Start: 07/18/17 09:01 Freq: Status: Active Protocol: Document 05/15/18 13:45 RCC (Rec: 05/16/18 12:50 RCC [email or web address]) Out-Patient Physical Therapy Visit Information Visit Information Visit Type Treatment Note Visit Note prog note 03/19 Visit Start Time 13:45 Visit Stop Time 14:30 Total Visit Minutes 45 Visit Number 124 Number of TANK FARM OPERATOR Visits 0 Evaluation Information Evaluation Date 04/05/15 PT-OP-B Current Condition Start: 08/31/17 13:42 Freq: Status: Active Protocol: Document 02/04/18 16:45 RCC (Rec: 02/05/18 10:52 RCC [email or web address]) Current Condition History of Current Condition Onset Date 12/14/14 History of Current Condition Pt presents to physical therapy s/p R TSA 12/14/2014 @ [facility]. Pt is R hand dominant. Pt uses a manual w/c for mobility, due to paraplegia at the level of T6. Pt is , mother is caregiver. Pt required a short term NG tube post surgery, then d/c to [facility] on 12/24/2014 . Pt then developed staph infection while at [facility]. Pt d/ c home and started PT on . Pt initiated outpatient physical therapy April 04, 2015. ADDENDUM: pt with clearance from PCP to return to/continue PT s/p of her first child on November 24, 2017. PT-OP-C Subjective Start: 07/18/17 09:01 Freq: Status: Active Protocol: Document 05/15/18 13:45 RCC (Rec: 05/16/18 12:50 RCC [email or web address]) OP-PT Subjective Patient Comments Patient Comments Pt states her R arm gets tired when holding her baby, cannot even use the ergocarrier without increased soreness in R shoulder and back. PT-OP-F Manual Assessment Start: 08/31/17 13:42 Freq: Status: Active Protocol: Document 04/02/18 15:15 RCC (Rec: 04/02/18 16:26 RCC [email or web address]) Manual Assessments Soft Tissue Assessment Soft Tissue Mobility Assessment Moderate tension L UT and levator, mild R UT and levator PT-OP-G Mobility & Gait Start: 08/31/17 13:42 Freq: Status: Active Protocol: Document 02/04/18 16:45 RCC (Rec: 02/05/18 10:52 RCC [email or web address]) OP Mobility Evaluation Transfers Bed to Chair Transfers CGA on even surfaces Floor Transfers unable PT-OP-J Posture/Palpation/Skin Start: 08/31/17 13:42 Freq: Status: Active Protocol: Document 08/29/17 09:45 RCC (Rec: 08/31/17 14:13 RCC [email or web address]) Palpation Assessment Location One Palpation Location R biceps long head and tendon Palpation Findings Tenderness Palpation Details negative Yuniel's sign, no bruising. Musculature intact. PT-OP-K Range of Motion Start: 07/18/17 09:01 Freq: Status: Active Protocol: Document 05/15/18 13:45 RCC (Rec: 05/16/18 12:50 RCC [email or web address]) Shoulder Goniometric Range of Motion Shoulder Measured in Degrees Right Active Testing Position Sitting Flexion 109 Abduction 104 External Rotation at 45 degrees 40 Abduction Right Passive Testing Position Supine Flexion 158 Abduction 162 External Rotation at 45 degrees 52 Abduction PT-OP-M Strength Start: 08/31/17 13:42 Freq: Status: Active Protocol: Document 05/15/18 13:45 RCC (Rec: 05/16/18 12:50 RCC [email or web address]) Shoulder Strength Shoulder Manual Muscle Testing Right Flexion 4 Good Abduction (C5) 4- Good- External Rotation 4- Good- Internal Rotation 4 Good Elbow/Forearm Strength Elbow and Forearm Manual Muscle Testing Right Flexion (C6) 4+ Good+ Extension (C7) 4 Good Comments no pain PT-OP-Q Treatments Start: 07/18/17 09:01 Freq: Status: Active Protocol: Document 05/15/18 13:45 RCC (Rec: 05/16/18 12:50 RCC [email or web address]) Manual Therapy Treatment Soft Tissue Mobilization pectorals Body Location R pecs Mobilization Type Myofascial Release Sustained Pressure Trigger Point Release Intensity/Depth Moderate Body Position Hooklying 4 Body Location R infra and supraspinatus Mobilization Type Strumming Intensity/Depth Moderate Body Position Supine 1 Body Location Rhomboids Mobilization Type Strumming Intensity/Depth Moderate Body Position Sitting Comments bilateral Joint Mobilizations [address] joint Direction lateral, upward rotation, medial Grade IV Body Position Sitting Manual Techniques 1 Type PROM- flexion, abduction, ER, IR Body Location R shoulder Body Position Supine Reps/Duration 10 each Other Other Manual Treatments R shoulder ROM, UE MMT 8 min PT-OP-R Modalities Start: 07/18/17 09:01 Freq: Status: Active Protocol: Document 05/15/18 13:45 RCC (Rec: 05/16/18 12:50 RCC [email or web address]) Hot Pack/Cold Pack Treatment Cold Pack Location R shoulder Patient Position Supine Treatment Duration (minutes) 10 Comments héctor PT-OP-T Assessment and Plan Start: 07/18/17 09:01 Freq: Status: Active Protocol: Document 05/15/18 13:45 RCC (Rec: 05/16/18 12:50 RCC [email or web address]) Physical Therapy Assessment Goals holding her child Impairment unable to hold her child for > 5 min without increased R shoulder pain Short Term Goal (STG) pt will report being able to hold her child for 10 min without increased R shoulder pain. STG Duration 6 weeks Alf Goal (LTG) pt will report being able to hold her child for 20 min without increased R shoulder pain. LTG Duration 12 weeks 3 Impairment R shoulder ROM Top Screw Goal (LTG) R shoulder AROM: flexion 165 degrees (deg.), abduction 165 deg, ER with arm at side 60 deg, IR with arm at side 60 deg. 05/15/18: good progress since LTG Duration 12 weeks 2 Impairment RUE weakness Top Screw Goal (LTG) R scapular elevation 5/5 R shoulder abduction, flexion, extension, ER, IR 4+/5 R elbow flexion, extension 4+/ 5 R wrist flexion, extension 4+/ 5 05/15/18: good progress since LTG Duration 12 weeks One Impairment Pt is unable to get on/off floor without assistance to play with her child Short Term Goal (STG) Pt will be able to get on/off floor with Min A to play with her child. STG Duration 6 weeks. Alf Goal (LTG) Pt will be able to get on/off floor with supervision to play with her child. LTG Duration 12 weeks Progress Towards Goals Progress Towards Goals Slow Progress due to Medical Issues Slow Progress - Other Progress Comments pt with good progress of ROM and R shoulder strength as well as R elbow extension improved to 4/5 with MMT. Added being able to hold her baby without increased R shoulder pain to goals, as is one of pt's main complaints now. Assessment Summary Assessment Pt was able to improve her R shoulder flexion and abduction ROM tolerance against gravity compared to previous progress assessment (unable to tolerate much vs gravity due to pain in January 2018). Her RUE strength is also improving, albeit slowly but due to pt's considerably complex medical history, this is not unexpected. Pt is having difficulty holding her child for any length of time due to R shoulder pain and fatigue, and would greatly benefit from the continuation of skilled physical therapy to continue to progress her R shoulder strength and stability, as well as continue to improve her ROM to be able to participate in increased care for her child, and improve functional independence with basic activities. Physical Therapy Plan Frequency and Duration Frequency of Treatment 1x/Week Duration of Treatment 12 weeks Plan of Care Start Date 05/15/18 Plan of Care End Date 08/07/18 Therapeutic Interventions Therapeutic Interventions Home Exercise Program Joint Mobilizations Manual Therapy Neuromuscular Re-education Patient/Caregiver Education Self-Care/Home Management Soft Tissue Mobilization Taping Therapeutic Activities Therapeutic Exercises Wheelchair Management Modalities Cold Pack/Ice Massage Hot Packs Next Visit Focus/Plan Next Note Type Treatment Note Next Visit Plan progress R shoulder and elbow strengthening as tolerated, improve R shoulder AROM in all planes.
--- NOTE | 2018-05-22 15:46 | PT.OTN ---
Current Diagnoses Pain in right shoulder (05/22/18) Pain in left hip (05/22/18) Stiffness of right shoulder, not elsewhere classified (05/22/18) Muscle weakness (generalized) (05/22/18) Anesthesia of skin (05/22/18) Abnormal posture (05/22/18) Presence of unspecified artificial shoulder joint (05/22/18) Physical Therapy Treatment Note PT-OP-A Visit Information Start: 07/18/17 09:01 Freq: Status: Active Protocol: Document 05/22/18 13:45 GGD (Rec: 05/22/18 15:46 GGD [email or web address]) Out-Patient Physical Therapy Visit Information Visit Information Visit Type Treatment Note Visit Start Time 13:45 Visit Stop Time 14:40 Total Visit Minutes 55 Visit Number 125 Number of SOLE TIER Visits 1 Evaluation Information Evaluation Date 04/05/15 PT-OP-B Current Condition Start: 08/31/17 13:42 Freq: Status: Active Protocol: Document 02/04/18 16:45 RCC (Rec: 02/05/18 10:52 RCC [email or web address]) Current Condition History of Current Condition Onset Date 12/14/14 History of Current Condition Pt presents to physical therapy s/p R TSA 12/14/2014 @ [facility]. Pt is R hand dominant. Pt uses a manual w/c for mobility, due to paraplegia at the level of T6. Pt is , mother is caregiver. Pt required a short term NG tube post surgery, then d/c to [facility] on 12/24/2014 . Pt then developed staph infection while at [facility]. Pt d/ c home and started PT on . Pt initiated outpatient physical therapy April 04, 2015. ADDENDUM: pt with clearance from PCP to return to/continue PT s/p of her first child on November 24, 2017. PT-OP-C Subjective Start: 07/18/17 09:01 Freq: Status: Active Protocol: Document 05/22/18 13:45 GGD (Rec: 05/22/18 15:46 GGD [email or web address]) OP-PT Subjective Patient Comments Patient Comments Pt stastes that shoulder is stiff, but doing better. PT-OP-F Manual Assessment Start: 08/31/17 13:42 Freq: Status: Active Protocol: Document 04/02/18 15:15 RCC (Rec: 04/02/18 16:26 RCC [email or web address]) Manual Assessments Soft Tissue Assessment Soft Tissue Mobility Assessment Moderate tension L UT and levator, mild R UT and levator PT-OP-G Mobility & Gait Start: 08/31/17 13:42 Freq: Status: Active Protocol: Document 02/04/18 16:45 RCC (Rec: 02/05/18 10:52 RCC [email or web address]) OP Mobility Evaluation Transfers Bed to Chair Transfers CGA on even surfaces Floor Transfers unable PT-OP-J Posture/Palpation/Skin Start: 08/31/17 13:42 Freq: Status: Active Protocol: Document 08/29/17 09:45 RCC (Rec: 08/31/17 14:13 RCC [email or web address]) Palpation Assessment Location One Palpation Location R biceps long head and tendon Palpation Findings Tenderness Palpation Details negative Yuniel's sign, no bruising. Musculature intact. PT-OP-K Range of Motion Start: 07/18/17 09:01 Freq: Status: Active Protocol: Document 05/15/18 13:45 RCC (Rec: 05/16/18 12:50 RCC [email or web address]) Shoulder Goniometric Range of Motion Shoulder Measured in Degrees Right Active Testing Position Sitting Flexion 109 Abduction 104 External Rotation at 45 degrees 40 Abduction Right Passive Testing Position Supine Flexion 158 Abduction 162 External Rotation at 45 degrees 52 Abduction PT-OP-M Strength Start: 08/31/17 13:42 Freq: Status: Active Protocol: Document 05/15/18 13:45 RCC (Rec: 05/16/18 12:50 RCC [email or web address]) Shoulder Strength Shoulder Manual Muscle Testing Right Flexion 4 Good Abduction (C5) 4- Good- External Rotation 4- Good- Internal Rotation 4 Good Elbow/Forearm Strength Elbow and Forearm Manual Muscle Testing Right Flexion (C6) 4+ Good+ Extension (C7) 4 Good Comments no pain PT-OP-Q Treatments Start: 07/18/17 09:01 Freq: Status: Active Protocol: Document 05/22/18 13:45 GGD (Rec: 05/22/18 15:46 GGD [email or web address]) Therapeutic Exercises Sitting Exercises ER Side bilateral Resistance pink latex-free Reps/Minutes 1x10 biceps curls Side bilateral Resistance 3 lbs Reps/Minutes 1x15 flexion Sitting Exercise Name shoulder flexion Side bilateral Resistance 1 lb Reps/Minutes x10 Comments flexion R to 100 deg. abduction Sitting Exercise Name shoulder abduction Side bilateral Resistance 1 lb Reps/Minutes x10 Comments abduction R to 95 deg 7 Sitting Exercise Name Shoulder extension and rows Side bilateral Resistance orange latex free Reps/Minutes 15 each Manual Therapy Treatment Soft Tissue Mobilization pectorals Body Location R pecs Mobilization Type Myofascial Release Sustained Pressure Trigger Point Release Intensity/Depth Moderate Body Position Hooklying 4 Body Location R infra and supraspinatus Mobilization Type Strumming Intensity/Depth Moderate Body Position Supine 1 Body Location Rhomboids Mobilization Type Strumming Intensity/Depth Moderate Body Position Sitting Comments bilateral Joint Mobilizations [address] joint Direction lateral, upward rotation, medial Grade IV Body Position Sitting Manual Techniques 1 Type PROM- flexion, abduction, ER, IR Body Location R shoulder Body Position Supine Reps/Duration 10 each PT-OP-R Modalities Start: 07/18/17 09:01 Freq: Status: Active Protocol: Document 05/22/18 13:45 GGD (Rec: 05/22/18 15:46 GGD [email or web address]) Hot Pack/Cold Pack Treatment Cold Pack Location R shoulder Patient Position Supine Treatment Duration (minutes) 10 Comments bolster PT-OP-T Assessment and Plan Start: 07/18/17 09:01 Freq: Status: Active Protocol: Document 05/22/18 13:45 GGD (Rec: 05/22/18 15:46 GGD [email or web address]) Physical Therapy Assessment Assessment Summary Assessment Pt is improving slowly. She needs cues for limiting UT activation. She had tension in right UT and pec muscle. Physical Therapy Plan Frequency and Duration Frequency of Treatment 1x/Week Duration of Treatment 12 weeks Plan of Care Start Date 05/15/18 Plan of Care End Date 08/07/18 Next Visit Focus/Plan Next Note Type Treatment Note Next Visit Plan progress R shoulder and elbow strengthening as tolerated, improve R shoulder AROM in all planes.
--- NOTE | 2018-06-04 13:45 | PT.OTN ---
Current Diagnoses Pain in right shoulder (06/04/18) Pain in left hip (06/04/18) Stiffness of right shoulder, not elsewhere classified (06/04/18) Muscle weakness (generalized) (06/04/18) Anesthesia of skin (06/04/18) Abnormal posture (06/04/18) Presence of unspecified artificial shoulder joint (06/04/18) Physical Therapy Treatment Note PT-OP-A Visit Information Start: 07/18/17 09:01 Freq: Status: Active Protocol: Document 06/04/18 13:45 RCC (Rec: 06/04/18 18:18 RCC [email or web address]) Out-Patient Physical Therapy Visit Information Visit Information Visit Type Treatment Note Visit Start Time 13:45 Visit Stop Time 14:35 Total Visit Minutes 50 Visit Number 126 Number of ENGLISH LANGUAGE ARTS TEACHER Visits 0 Evaluation Information Evaluation Date 04/05/15 PT-OP-B Current Condition Start: 08/31/17 13:42 Freq: Status: Active Protocol: Document 02/04/18 16:45 RCC (Rec: 02/05/18 10:52 RCC [email or web address]) Current Condition History of Current Condition Onset Date 12/14/14 History of Current Condition Pt presents to physical therapy s/p R TSA 12/14/2014 @ [facility]. Pt is R hand dominant. Pt uses a manual w/c for mobility, due to paraplegia at the level of T6. Pt is , mother is caregiver. Pt required a short term NG tube post surgery, then d/c to [facility] on 12/24/2014 . Pt then developed staph infection while at [facility]. Pt d/ c home and started PT on . Pt initiated outpatient physical therapy April 04, 2015. ADDENDUM: pt with clearance from PCP to return to/continue PT s/p of her first child on November 24, 2017. PT-OP-C Subjective Start: 07/18/17 09:01 Freq: Status: Active Protocol: Document 06/04/18 13:45 RCC (Rec: 06/04/18 18:18 RCC [email or web address]) OP-PT Subjective Patient Comments Patient Comments Pt states that she feels stiff today but no increased R shoulder pain. She has been able to hold her baby off and on but still gets sore. PT-OP-F Manual Assessment Start: 08/31/17 13:42 Freq: Status: Active Protocol: Document 04/02/18 15:15 RCC (Rec: 04/02/18 16:26 RCC [email or web address]) Manual Assessments Soft Tissue Assessment Soft Tissue Mobility Assessment Moderate tension L UT and levator, mild R UT and levator PT-OP-G Mobility & Gait Start: 08/31/17 13:42 Freq: Status: Active Protocol: Document 02/04/18 16:45 RCC (Rec: 02/05/18 10:52 RCC [email or web address]) OP Mobility Evaluation Transfers Bed to Chair Transfers CGA on even surfaces Floor Transfers unable PT-OP-J Posture/Palpation/Skin Start: 08/31/17 13:42 Freq: Status: Active Protocol: Document 08/29/17 09:45 RCC (Rec: 08/31/17 14:13 RCC [email or web address]) Palpation Assessment Location One Palpation Location R biceps long head and tendon Palpation Findings Tenderness Palpation Details negative Yuniel's sign, no bruising. Musculature intact. PT-OP-K Range of Motion Start: 07/18/17 09:01 Freq: Status: Active Protocol: Document 05/15/18 13:45 RCC (Rec: 05/16/18 12:50 RCC [email or web address]) Shoulder Goniometric Range of Motion Shoulder Measured in Degrees Right Active Testing Position Sitting Flexion 109 Abduction 104 External Rotation at 45 degrees 40 Abduction Right Passive Testing Position Supine Flexion 158 Abduction 162 External Rotation at 45 degrees 52 Abduction PT-OP-M Strength Start: 08/31/17 13:42 Freq: Status: Active Protocol: Document 05/15/18 13:45 RCC (Rec: 05/16/18 12:50 RCC [email or web address]) Shoulder Strength Shoulder Manual Muscle Testing Right Flexion 4 Good Abduction (C5) 4- Good- External Rotation 4- Good- Internal Rotation 4 Good Elbow/Forearm Strength Elbow and Forearm Manual Muscle Testing Right Flexion (C6) 4+ Good+ Extension (C7) 4 Good Comments no pain PT-OP-Q Treatments Start: 07/18/17 09:01 Freq: Status: Active Protocol: Document 06/04/18 13:45 RCC (Rec: 06/04/18 18:18 RCC [email or web address]) Therapeutic Exercises Supine Exercises IR/ER Supine Exercise Name IR/ER @ 45 deg abduction Side right Resistance 1 lb Reps/Minutes 1x20 supine punches Side bilateral Resistance 3 lbs Reps/Minutes 1x25 flexion Supine Exercise Name shoulder flexion Side right Resistance 2 lbs Reps/Minutes 1x20 horiz. abduction Supine Exercise Name horizontal abduction Side right Resistance 1 lb Reps/Minutes 15 Comments horizontal abduction followed by GH abduction and back to neutral Manual Therapy Treatment Soft Tissue Mobilization pectorals Body Location R pecs Mobilization Type Myofascial Release Sustained Pressure Trigger Point Release Intensity/Depth Moderate Body Position Hooklying 4 Body Location R infra and supraspinatus Mobilization Type Strumming Intensity/Depth Moderate Body Position Supine Joint Mobilizations [address] joint Direction lateral, upward rotation, medial Grade IV Body Position Sitting Manual Techniques 1 Type PROM- flexion, abduction, ER, IR Body Location R shoulder Body Position Supine Reps/Duration 10 each PT-OP-R Modalities Start: 07/18/17 09:01 Freq: Status: Active Protocol: Document 06/04/18 13:45 RCC (Rec: 06/04/18 18:18 RCC [email or web address]) Hot Pack/Cold Pack Treatment Cold Pack Location R shoulder Patient Position Supine Treatment Duration (minutes) 10 Comments bolster PT-OP-T Assessment and Plan Start: 07/18/17 09:01 Freq: Status: Active Protocol: Document 06/04/18 13:45 RCC (Rec: 06/04/18 18:18 RCC [email or web address]) Physical Therapy Assessment Assessment Summary Assessment Pt able to achieve 150 degrees shoulder abduction in supine with 1 lb weight, with fair control of the RUE motion. She continues to fatigue with resistance training, but is making good progress. Physical Therapy Plan Frequency and Duration Frequency of Treatment 1x/Week Duration of Treatment 12 weeks Plan of Care Start Date 05/15/18 Plan of Care End Date 08/07/18 Next Visit Focus/Plan Next Note Type Treatment Note Next Visit Plan cont to strengthen shoulder girdle and advance ROM as tolerated.
--- NOTE | 2018-06-12 13:45 | PT.OTN ---
Current Diagnoses Pain in right shoulder (06/12/18) Pain in left hip (06/12/18) Stiffness of right shoulder, not elsewhere classified (06/12/18) Muscle weakness (generalized) (06/12/18) Anesthesia of skin (06/12/18) Abnormal posture (06/12/18) Presence of unspecified artificial shoulder joint (06/12/18) Physical Therapy Treatment Note PT-OP-A Visit Information Start: 07/18/17 09:01 Freq: Status: Active Protocol: Document 06/12/18 13:45 RCC (Rec: 06/12/18 15:20 RCC [email or web address]) Out-Patient Physical Therapy Visit Information Visit Information Visit Type Treatment Note Visit Start Time 13:45 Visit Stop Time 14:34 Total Visit Minutes 49 Visit Number 127 Number of SANDBLASTER STONE Visits 0 Evaluation Information Evaluation Date 04/05/15 PT-OP-B Current Condition Start: 08/31/17 13:42 Freq: Status: Active Protocol: Document 02/04/18 16:45 RCC (Rec: 02/05/18 10:52 RCC [email or web address]) Current Condition History of Current Condition Onset Date 12/14/14 History of Current Condition Pt presents to physical therapy s/p R TSA 12/14/2014 @ [facility]. Pt is R hand dominant. Pt uses a manual w/c for mobility, due to paraplegia at the level of T6. Pt is , mother is caregiver. Pt required a short term NG tube post surgery, then d/c to [facility] on 12/24/2014 . Pt then developed staph infection while at [facility]. Pt d/ c home and started PT on . Pt initiated outpatient physical therapy April 04, 2015. ADDENDUM: pt with clearance from PCP to return to/continue PT s/p of her first child on November 24, 2017. PT-OP-C Subjective Start: 07/18/17 09:01 Freq: Status: Active Protocol: Document 06/12/18 13:45 RCC (Rec: 06/12/18 15:20 RCC [email or web address]) OP-PT Subjective Patient Comments Patient Comments Pt has some R anterior shoulder discomfort but overall doing fairly well. PT-OP-F Manual Assessment Start: 08/31/17 13:42 Freq: Status: Active Protocol: Document 06/12/18 13:45 RCC (Rec: 06/12/18 15:20 RCC [email or web address]) Manual Assessments Soft Tissue Assessment Soft Tissue Mobility Assessment mild TTP: long head biceps, anterior deltoid PT-OP-G Mobility & Gait Start: 08/31/17 13:42 Freq: Status: Active Protocol: Document 02/04/18 16:45 RCC (Rec: 02/05/18 10:52 RCC [email or web address]) OP Mobility Evaluation Transfers Bed to Chair Transfers CGA on even surfaces Floor Transfers unable PT-OP-J Posture/Palpation/Skin Start: 08/31/17 13:42 Freq: Status: Active Protocol: Document 08/29/17 09:45 RCC (Rec: 08/31/17 14:13 RCC [email or web address]) Palpation Assessment Location One Palpation Location R biceps long head and tendon Palpation Findings Tenderness Palpation Details negative Yuniel's sign, no bruising. Musculature intact. PT-OP-K Range of Motion Start: 07/18/17 09:01 Freq: Status: Active Protocol: Document 05/15/18 13:45 RCC (Rec: 05/16/18 12:50 RCC [email or web address]) Shoulder Goniometric Range of Motion Shoulder Measured in Degrees Right Active Testing Position Sitting Flexion 109 Abduction 104 External Rotation at 45 degrees 40 Abduction Right Passive Testing Position Supine Flexion 158 Abduction 162 External Rotation at 45 degrees 52 Abduction PT-OP-M Strength Start: 08/31/17 13:42 Freq: Status: Active Protocol: Document 05/15/18 13:45 RCC (Rec: 05/16/18 12:50 RCC [email or web address]) Shoulder Strength Shoulder Manual Muscle Testing Right Flexion 4 Good Abduction (C5) 4- Good- External Rotation 4- Good- Internal Rotation 4 Good Elbow/Forearm Strength Elbow and Forearm Manual Muscle Testing Right Flexion (C6) 4+ Good+ Extension (C7) 4 Good Comments no pain PT-OP-Q Treatments Start: 07/18/17 09:01 Freq: Status: Active Protocol: Document 06/12/18 13:45 RCC (Rec: 06/12/18 15:20 RCC [email or web address]) Therapeutic Exercises Supine Exercises supine punches Side bilateral Resistance 3 lbs Reps/Minutes 1x25 Sitting Exercises flexion Sitting Exercise Name shoulder flexion Side bilateral Resistance 1 lb Reps/Minutes x15 Comments flexion R to 100 deg. abduction Sitting Exercise Name shoulder abduction Side bilateral Resistance 1 lb Reps/Minutes x10 Comments abduction R to 95 deg 7 Sitting Exercise Name Shoulder extension and rows Side bilateral Resistance pink latex free Reps/Minutes 15 each Manual Therapy Treatment Soft Tissue Mobilization anterior deltoid Mobilization Type Rolling Strumming Intensity/Depth Moderate Body Position Supine Comments Right biceps long head (R) Mobilization Type Other Intensity/Depth Moderate Body Position Supine Comments cross-friction pectorals Body Location R pecs Mobilization Type Myofascial Release Sustained Pressure Trigger Point Release Intensity/Depth Moderate Body Position Hooklying Joint Mobilizations [address] joint Direction lateral, upward rotation, medial Grade IV Body Position Supine Manual Techniques 1 Type PROM- flexion, abduction, ER, IR Body Location R shoulder Body Position Supine Reps/Duration 10 each PT-OP-R Modalities Start: 07/18/17 09:01 Freq: Status: Active Protocol: Document 06/12/18 13:45 RCC (Rec: 06/12/18 15:20 [facility] [email or web address]) Hot Pack/Cold Pack Treatment Cold Pack Location R shoulder Patient Position Supine Treatment Duration (minutes) 10 Comments bolster PT-OP-T Assessment and Plan Start: 07/18/17 09:01 Freq: Status: Active Protocol: Document 06/12/18 13:45 RCC (Rec: 06/12/18 15:20 [facility] [email or web address]) Physical Therapy Assessment Assessment Summary Assessment Pt with mild tension and tenderness over the biceps brachii long head tendon today as well as the anterior deltoid, likely from over- straining and compensation d/t R shoulder girdle weakness. Pt tolerated exercises with resistance well but did have increased fatigue with abduction. Physical Therapy Plan Frequency and Duration Frequency of Treatment 1x/Week Duration of Treatment 12 weeks Plan of Care Start Date 05/15/18 Plan of Care End Date 08/07/18 Next Visit Focus/Plan Next Note Type Treatment Note Next Visit Plan R shoulder strengthening, scapular control and mobilizations
--- NOTE | 2018-06-19 13:50 | PT.OTN ---
Current Diagnoses Pain in right shoulder (06/19/18) Pain in left hip (06/19/18) Stiffness of right shoulder, not elsewhere classified (06/19/18) Muscle weakness (generalized) (06/19/18) Anesthesia of skin (06/19/18) Abnormal posture (06/19/18) Presence of unspecified artificial shoulder joint (06/19/18) Physical Therapy Treatment Note PT-OP-A Visit Information Start: 07/18/17 09:01 Freq: Status: Active Protocol: Document 06/19/18 13:50 RCC (Rec: 06/19/18 14:45 RCC [email or web address]) Out-Patient Physical Therapy Visit Information Visit Information Visit Type Treatment Note Visit Start Time 13:50 Visit Stop Time 14:35 Total Visit Minutes 45 Visit Number 128 Number of [employer] Visits 0 Evaluation Information Evaluation Date 04/05/15 PT-OP-B Current Condition Start: 08/31/17 13:42 Freq: Status: Active Protocol: Document 02/04/18 16:45 RCC (Rec: 02/05/18 10:52 RCC [email or web address]) Current Condition History of Current Condition Onset Date 12/14/14 History of Current Condition Pt presents to physical therapy s/p R TSA 12/14/2014 @ [facility]. Pt is R hand dominant. Pt uses a manual w/c for mobility, due to paraplegia at the level of T6. Pt is , mother is caregiver. Pt required a short term NG tube post surgery, then d/c to [facility] on 12/24/2014 . Pt then developed staph infection while at [facility]. Pt d/ c home and started PT on . Pt initiated outpatient physical therapy April 04, 2015. ADDENDUM: pt with clearance from PCP to return to/continue PT s/p of her first child on November 24, 2017. PT-OP-C Subjective Start: 07/18/17 09:01 Freq: Status: Active Protocol: Document 06/19/18 13:50 RCC (Rec: 06/19/18 14:45 RCC [email or web address]) OP-PT Subjective Patient Comments Patient Comments Pt reports she has been somewhat compliant with HEP but very busy with childcare. PT-OP-F Manual Assessment Start: 08/31/17 13:42 Freq: Status: Active Protocol: Document 06/12/18 13:45 RCC (Rec: 06/12/18 15:20 RCC [email or web address]) Manual Assessments Soft Tissue Assessment Soft Tissue Mobility Assessment mild TTP: long head biceps, anterior deltoid PT-OP-G Mobility & Gait Start: 08/31/17 13:42 Freq: Status: Active Protocol: Document 02/04/18 16:45 RCC (Rec: 02/05/18 10:52 RCC [email or web address]) OP Mobility Evaluation Transfers Bed to Chair Transfers CGA on even surfaces Floor Transfers unable PT-OP-J Posture/Palpation/Skin Start: 08/31/17 13:42 Freq: Status: Active Protocol: Document 08/29/17 09:45 RCC (Rec: 08/31/17 14:13 RCC [email or web address]) Palpation Assessment Location One Palpation Location R biceps long head and tendon Palpation Findings Tenderness Palpation Details negative Yuniel's sign, no bruising. Musculature intact. PT-OP-K Range of Motion Start: 07/18/17 09:01 Freq: Status: Active Protocol: Document 05/15/18 13:45 RCC (Rec: 05/16/18 12:50 RCC [email or web address]) Shoulder Goniometric Range of Motion Shoulder Measured in Degrees Right Active Testing Position Sitting Flexion 109 Abduction 104 External Rotation at 45 degrees 40 Abduction Right Passive Testing Position Supine Flexion 158 Abduction 162 External Rotation at 45 degrees 52 Abduction PT-OP-M Strength Start: 08/31/17 13:42 Freq: Status: Active Protocol: Document 05/15/18 13:45 RCC (Rec: 05/16/18 12:50 RCC [email or web address]) Shoulder Strength Shoulder Manual Muscle Testing Right Flexion 4 Good Abduction (C5) 4- Good- External Rotation 4- Good- Internal Rotation 4 Good Elbow/Forearm Strength Elbow and Forearm Manual Muscle Testing Right Flexion (C6) 4+ Good+ Extension (C7) 4 Good Comments no pain PT-OP-Q Treatments Start: 07/18/17 09:01 Freq: Status: Active Protocol: Document 06/19/18 13:50 RCC (Rec: 06/19/18 14:45 RCC [email or web address]) Therapeutic Exercises Supine Exercises alternating IR/ER with shoulder flexion Supine Exercise Name shoulder flexion to 90 deg, alternating IR/ER Side right Reps/Minutes x15 IR/ER Supine Exercise Name IR/ER @ 45 deg abduction Side right Resistance 2 lb Reps/Minutes 1x20 supine punches Side bilateral Resistance 2 lbs Reps/Minutes 1x25 biceps curl Side right Resistance 2 lbs Reps/Minutes x20 horiz. abduction Supine Exercise Name horizontal abduction Side right Resistance 2 lb Reps/Minutes 15 Comments horizontal abduction followed by GH abduction and back to neutral Sitting Exercises flexion Sitting Exercise Name shoulder flexion Side bilateral Resistance 1 lb Reps/Minutes x15 Comments flexion R to 100 deg. abduction Sitting Exercise Name shoulder abduction Side bilateral Resistance 1 lb Reps/Minutes x10 Comments abduction R to 95 deg 7 Sitting Exercise Name Shoulder extension and rows Side bilateral Resistance pink latex free Reps/Minutes 15 each Manual Therapy Treatment Soft Tissue Mobilization biceps long head (R) Mobilization Type Other Intensity/Depth Moderate Body Position Supine Comments cross-friction 4 Body Location R infra and supraspinatus Mobilization Type Strumming Intensity/Depth Moderate Body Position Supine Manual Techniques 1 Type PROM- flexion, abduction, ER, IR Body Location R shoulder Body Position Supine Reps/Duration 10 each PT-OP-R Modalities Start: 07/18/17 09:01 Freq: Status: Active Protocol: Document 06/19/18 13:50 RCC (Rec: 06/19/18 14:45 RCC [email or web address]) Hot Pack/Cold Pack Treatment Cold Pack Location R shoulder Patient Position Supine Treatment Duration (minutes) 10 Comments bolster PT-OP-T Assessment and Plan Start: 07/18/17 09:01 Freq: Status: Active Protocol: Document 06/19/18 13:50 RCC (Rec: 06/19/18 14:45 RCC [email or web address]) Physical Therapy Assessment Assessment Summary Assessment Pt with higher degree of difficulty with ER position when holding R shoulder @ 90 degrees flexion in supine. Improved strength tolerance with ER in supine and less discomfort in anterior shoulder with strengthening today. Physical Therapy Plan Frequency and Duration Frequency of Treatment 1x/Week Duration of Treatment 12 weeks Plan of Care Start Date 05/15/18 Plan of Care End Date 08/07/18 Next Visit Focus/Plan Next Note Type Treatment Note Next Visit Plan cont. R shoulder AROM and strength s/p R TSA
--- NOTE | 2018-07-30 14:30 | PT.OTN ---
Current Diagnoses Pain in right shoulder (07/30/18) Pain in left hip (07/30/18) Stiffness of right shoulder, not elsewhere classified (07/30/18) Muscle weakness (generalized) (07/30/18) Anesthesia of skin (07/30/18) Abnormal posture (07/30/18) Presence of unspecified artificial shoulder joint (07/30/18) Physical Therapy Treatment Note PT-OP-A Visit Information Start: 07/18/17 09:01 Freq: Status: Active Protocol: Document 07/30/18 14:30 RCC (Rec: 08/01/18 12:34 RCC [email or web address]) Out-Patient Physical Therapy Visit Information Visit Information Visit Type Treatment Note Visit Start Time 14:30 Visit Stop Time 15:20 Total Visit Minutes 50 Visit Number 129 Number of DBA MANAGER Visits 0 Evaluation Information Evaluation Date 04/05/15 PT-OP-B Current Condition Start: 08/31/17 13:42 Freq: Status: Active Protocol: Document 02/04/18 16:45 RCC (Rec: 02/05/18 10:52 RCC [email or web address]) Current Condition History of Current Condition Onset Date 12/14/14 History of Current Condition Pt presents to physical therapy s/p R TSA 12/14/2014 @ [facility]. Pt is R hand dominant. Pt uses a manual w/c for mobility, due to paraplegia at the level of T6. Pt is , mother is caregiver. Pt required a short term NG tube post surgery, then d/c to [facility] on 12/24/2014 . Pt then developed staph infection while at [facility]. Pt d/ c home and started PT on . Pt initiated outpatient physical therapy April 04, 2015. ADDENDUM: pt with clearance from PCP to return to/continue PT s/p of her first child on November 24, 2017. PT-OP-C Subjective Start: 07/18/17 09:01 Freq: Status: Active Protocol: Document 07/30/18 14:30 RCC (Rec: 08/01/18 12:34 RCC [email or web address]) OP-PT Subjective Patient Comments Patient Comments Pt with mild discomfort in R shoulder occasionally when holding her baby, who is now about 14 lbs. PT-OP-F Manual Assessment Start: 08/31/17 13:42 Freq: Status: Active Protocol: Document 06/12/18 13:45 RCC (Rec: 06/12/18 15:20 RCC [email or web address]) Manual Assessments Soft Tissue Assessment Soft Tissue Mobility Assessment mild TTP: long head biceps, anterior deltoid PT-OP-G Mobility & Gait Start: 08/31/17 13:42 Freq: Status: Active Protocol: Document 02/04/18 16:45 RCC (Rec: 02/05/18 10:52 RCC [email or web address]) OP Mobility Evaluation Transfers Bed to Chair Transfers CGA on even surfaces Floor Transfers unable PT-OP-J Posture/Palpation/Skin Start: 08/31/17 13:42 Freq: Status: Active Protocol: Document 08/29/17 09:45 RCC (Rec: 08/31/17 14:13 RCC [email or web address]) Palpation Assessment Location One Palpation Location R biceps long head and tendon Palpation Findings Tenderness Palpation Details negative Yuniel's sign, no bruising. Musculature intact. PT-OP-K Range of Motion Start: 07/18/17 09:01 Freq: Status: Active Protocol: Document 05/15/18 13:45 RCC (Rec: 05/16/18 12:50 RCC [email or web address]) Shoulder Goniometric Range of Motion Shoulder Measured in Degrees Right Active Testing Position Sitting Flexion 109 Abduction 104 External Rotation at 45 degrees 40 Abduction Right Passive Testing Position Supine Flexion 158 Abduction 162 External Rotation at 45 degrees 52 Abduction PT-OP-M Strength Start: 08/31/17 13:42 Freq: Status: Active Protocol: Document 05/15/18 13:45 RCC (Rec: 05/16/18 12:50 RCC [email or web address]) Shoulder Strength Shoulder Manual Muscle Testing Right Flexion 4 Good Abduction (C5) 4- Good- External Rotation 4- Good- Internal Rotation 4 Good Elbow/Forearm Strength Elbow and Forearm Manual Muscle Testing Right Flexion (C6) 4+ Good+ Extension (C7) 4 Good Comments no pain PT-OP-Q Treatments Start: 07/18/17 09:01 Freq: Status: Active Protocol: Document 07/30/18 14:30 RCC (Rec: 08/01/18 12:34 RCC [email or web address]) Therapeutic Exercises Supine Exercises IR/ER Supine Exercise Name IR/ER @ 45 deg abduction Side right Resistance 1 lb Reps/Minutes 1x20 flexion Supine Exercise Name shoulder flexion Side right Resistance 1 lb Reps/Minutes 1x20 biceps curl Side right Resistance 2 lbs Reps/Minutes x20 Sitting Exercises flexion Sitting Exercise Name shoulder flexion Side bilateral Resistance 0 lb Reps/Minutes x15 Comments flexion R to 100 deg. abduction Sitting Exercise Name shoulder abduction Side bilateral Resistance 0 lb Reps/Minutes x10 Comments abduction R to 95 deg 7 Sitting Exercise Name Shoulder extension and rows Side bilateral Resistance pink latex free Reps/Minutes 15 each Manual Therapy Treatment Soft Tissue Mobilization anterior deltoid Mobilization Type Rolling Strumming Intensity/Depth Moderate Body Position Supine Comments Right biceps long head (R) Mobilization Type Other Intensity/Depth Moderate Body Position Supine Comments cross-friction Manual Techniques 1 Type PROM- flexion, abduction, ER, IR Body Location R shoulder Body Position Supine Reps/Duration 10 each PT-OP-R Modalities Start: 07/18/17 09:01 Freq: Status: Active Protocol: Document 07/30/18 14:30 RCC (Rec: 08/01/18 12:34 RCC [email or web address]) Hot Pack/Cold Pack Treatment Cold Pack Location R shoulder Patient Position Supine Treatment Duration (minutes) 10 Comments bolster PT-OP-T Assessment and Plan Start: 07/18/17 09:01 Freq: Status: Active Protocol: Document 07/30/18 14:30 RCC (Rec: 08/01/18 12:34 [facility] [email or web address]) Physical Therapy Assessment Assessment Summary Assessment Pt unable to tolerate added resistance seated shoulder flexion or abduction today, due to anterior shoulder pain likely associated with increased physical demand of holding and caring for her child. Physical Therapy Plan Frequency and Duration Frequency of Treatment 1x/Week Duration of Treatment 12 weeks Plan of Care Start Date 05/15/18 Plan of Care End Date 08/07/18 Next Visit Focus/Plan Next Note Type Progress Note Next Visit Plan reassess obj measures
--- NOTE | 2018-08-12 14:33 | PT.OTN ---
Current Diagnoses Pain in right shoulder (08/12/18) Pain in left hip (08/12/18) Stiffness of right shoulder, not elsewhere classified (08/12/18) Muscle weakness (generalized) (08/12/18) Anesthesia of skin (08/12/18) Abnormal posture (08/12/18) Presence of unspecified artificial shoulder joint (08/12/18) Physical Therapy Treatment Note PT-OP-A Visit Information Start: 07/18/17 09:01 Freq: Status: Active Protocol: Document 08/12/18 14:33 RCC (Rec: 08/12/18 15:59 RCC [email or web address]) Out-Patient Physical Therapy Visit Information Visit Information Visit Type Treatment Note Visit Start Time 14:33 Visit Stop Time 15:23 Total Visit Minutes 50 Visit Number 130 Number of WEATHERIZATION INSTALLER Visits 0 Evaluation Information Evaluation Date 04/05/15 PT-OP-B Current Condition Start: 08/31/17 13:42 Freq: Status: Active Protocol: Document 02/04/18 16:45 RCC (Rec: 02/05/18 10:52 RCC [email or web address]) Current Condition History of Current Condition Onset Date 12/14/14 History of Current Condition Pt presents to physical therapy s/p R TSA 12/14/2014 @ [facility]. Pt is R hand dominant. Pt uses a manual w/c for mobility, due to paraplegia at the level of T6. Pt is , mother is caregiver. Pt required a short term NG tube post surgery, then d/c to [facility] on 12/24/2014 . Pt then developed staph infection while at [facility]. Pt d/ c home and started PT on . Pt initiated outpatient physical therapy April 04, 2015. ADDENDUM: pt with clearance from PCP to return to/continue PT s/p of her first child on November 24, 2017. PT-OP-C Subjective Start: 07/18/17 09:01 Freq: Status: Active Protocol: Document 08/12/18 14:33 RCC (Rec: 08/12/18 15:59 RCC [email or web address]) OP-PT Subjective Patient Comments Patient Comments Pt states that she got a new car, and that she will be getting re-certified in driving with hand controls. Pt is also getting a new w/c, which will hopefully be more lightweight. She has had less shoulder fatigue with simple activities, but still having some difficulty with assisting his son. PT-OP-F Manual Assessment Start: 08/31/17 13:42 Freq: Status: Active Protocol: Document 06/12/18 13:45 RCC (Rec: 06/12/18 15:20 RCC [email or web address]) Manual Assessments Soft Tissue Assessment Soft Tissue Mobility Assessment mild TTP: long head biceps, anterior deltoid PT-OP-G Mobility & Gait Start: 08/31/17 13:42 Freq: Status: Active Protocol: Document 08/12/18 14:33 RCC (Rec: 08/12/18 15:59 RCC [email or web address]) OP Mobility Evaluation Wheelchair Management Assessment Details indep. transfer w/c to car; set up for w/c breakdown, unable to fold up w/c indep. PT-OP-J Posture/Palpation/Skin Start: 08/31/17 13:42 Freq: Status: Active Protocol: Document 08/29/17 09:45 RCC (Rec: 08/31/17 14:13 RCC [email or web address]) Palpation Assessment Location One Palpation Location R biceps long head and tendon Palpation Findings Tenderness Palpation Details negative Yuniel's sign, no bruising. Musculature intact. PT-OP-K Range of Motion Start: 07/18/17 09:01 Freq: Status: Active Protocol: Document 08/12/18 14:33 RCC (Rec: 08/12/18 15:59 RCC [email or web address]) Shoulder Goniometric Range of Motion Shoulder Measured in Degrees Right Active Testing Position Sitting Flexion 112 Abduction 115 External Rotation at 45 degrees 42 Abduction Right Passive Testing Position Supine Flexion 160 Abduction 165 External Rotation at 45 degrees 55 Abduction PT-OP-M Strength Start: 08/31/17 13:42 Freq: Status: Active Protocol: Document 08/12/18 14:33 RCC (Rec: 08/12/18 15:59 RCC [email or web address]) Shoulder Strength Shoulder Manual Muscle Testing Right Flexion 4 Good Abduction (C5) 4 Good External Rotation 4 Good Internal Rotation 4+ Good+ PT-OP-Q Treatments Start: 07/18/17 09:01 Freq: Status: Active Protocol: Document 08/12/18 14:33 RCC (Rec: 08/12/18 15:59 RCC [email or web address]) Therapeutic Exercises Sitting Exercises flexion Sitting Exercise Name shoulder flexion Side bilateral Resistance 1 lb Reps/Minutes x15 Comments flexion R to 100 deg. abduction Sitting Exercise Name shoulder abduction Side bilateral Resistance 1 lb Reps/Minutes x10 Comments abduction R to 95 deg 7 Sitting Exercise Name Shoulder extension and rows Side bilateral Resistance pink latex free Reps/Minutes 15 each Therapeutic Activity Therapeutic Activity car transfer Comments w/c to car transfer (route delivery driver's side) and attempted to get w/c into car indep. Manual Therapy Treatment Joint Mobilizations [address] joint Direction lateral, upward rotation, medial Grade IV Body Position Supine Manual Techniques 1 Type PROM- flexion, abduction, ER, IR Body Location R shoulder Body Position Supine Reps/Duration 10 each PT-OP-R Modalities Start: 07/18/17 09:01 Freq: Status: Active Protocol: Document 07/30/18 14:30 RCC (Rec: 08/01/18 12:34 RCC [email or web address]) Hot Pack/Cold Pack Treatment Cold Pack Location R shoulder Patient Position Supine Treatment Duration (minutes) 10 Comments bolster PT-OP-T Assessment and Plan Start: 07/18/17 09:01 Freq: Status: Active Protocol: Document 08/12/18 14:33 RCC (Rec: 08/12/18 15:59 RCC [email or web address]) Physical Therapy Assessment Goals car transfer Impairment pt unable to manage w/c to place in/out of car for indep with driving Short Term Goal (STG) Pt will be able to get w/c in/ out of car with min A STG Duration 6 weeks Senior Application Software Engineer Goal (LTG) Pt will be able to get w/c in/ out of car with supervision only for improved independence with the ability to travel without assistance. LTG Duration 12 weeks holding her child Impairment unable to hold her child for > 5 min without increased R shoulder pain Short Term Goal (STG) pt will report being able to hold her child for 10 min without increased R shoulder pain. STG Duration achieved 08/12/18 Senior Application Software Engineer Goal (LTG) pt will report being able to hold her child for 20 min without increased R shoulder pain. LTG Duration achieved 08/12/18 3 Impairment R shoulder ROM Senior Application Software Engineer Goal (LTG) R shoulder AROM: flexion 165 degrees (deg.), abduction 165 deg, ER with arm at side 60 deg, IR with arm at side 60 deg. 05/15/18: good progress since 08/12/18: some progress LTG Duration 12 weeks 2 Impairment RUE weakness Senior Application Software Engineer Goal (LTG) R scapular elevation 5/5 R shoulder abduction, flexion, extension, ER, IR 4+/5 R elbow flexion, extension 4+/ 5 R wrist flexion, extension 4+/ 5 05/15/18: good progress since 08/12/18: R shoulder abduction, ER to 4/5 and IR to 4+/5 LTG Duration 12 weeks One Impairment Pt is unable to get on/off floor without assistance to play with her child Short Term Goal (STG) Pt will be able to get on/off floor with Min A to play with her child. STG Duration achieved 08/12/18 Senior Application Software Engineer Goal (LTG) Pt will be able to get on/off floor with supervision to play with her child. 08/12/18: able to get on/off floor with min assist using floor to mat to couch to chair . LTG Duration 12 weeks Progress Towards Goals Progress Towards Goals Slow Progress due to Medical Issues Slow Progress - Other Assessment Summary Assessment Pt's R shoulder strength improved to 4/5 with abduction and ER, and IR increased to 4 +/5 with manual muscle testing . Pt tolerated resisted flexion and abduction of the R shoulder without c/o pain in the anterior musculature today . Pt recently got a new car which will be set up for hand controls for pt to drive indep . She is now at this time unable to manage her w/c to get it in/out of her car without assistance due to impaired sitting balance along with impaired R shoulder strength s/p R TSA. Pt would greatly benefit from the continuation of skilled physical therapy to progress toward improved overall functional independence, including increasing ROM and strength of the R shoulder to return to driving indep and being able to participate in play with her son without restrictions involving her R shoulder impairments. Physical Therapy Plan Frequency and Duration Frequency of Treatment 1x/Week Duration of Treatment 12 weeks Plan of Care Start Date 08/12/18 Plan of Care End Date 11/04/18 Therapeutic Interventions Therapeutic Interventions Home Exercise Program Joint Mobilizations Manual Therapy Neuromuscular Re-education Patient/Caregiver Education Self-Care/Home Management Soft Tissue Mobilization Taping Therapeutic Activities Therapeutic Exercises Wheelchair Management Modalities Cold Pack/Ice Massage Hot Packs Next Visit Focus/Plan Next Note Type Treatment Note Next Visit Plan cont to advance R shoulder ROM and strength, reaching activities.
--- NOTE | 2018-08-20 14:30 | PT.OTN ---
Current Diagnoses Pain in right shoulder (08/20/18) Pain in left hip (08/20/18) Stiffness of right shoulder, not elsewhere classified (08/20/18) Muscle weakness (generalized) (08/20/18) Anesthesia of skin (08/20/18) Abnormal posture (08/20/18) Presence of unspecified artificial shoulder joint (08/20/18) Physical Therapy Treatment Note PT-OP-A Visit Information Start: 07/18/17 09:01 Freq: Status: Active Protocol: Document 08/20/18 14:30 RCC (Rec: 08/22/18 11:25 RCC [email or web address]) Out-Patient Physical Therapy Visit Information Visit Information Visit Type Treatment Note Visit Start Time 14:30 Visit Stop Time 15:18 Total Visit Minutes 48 Visit Number 131 Number of CROWN PERFORATOR OPERATOR Visits 0 Evaluation Information Evaluation Date 04/05/15 PT-OP-B Current Condition Start: 08/31/17 13:42 Freq: Status: Active Protocol: Document 02/04/18 16:45 RCC (Rec: 02/05/18 10:52 RCC [email or web address]) Current Condition History of Current Condition Onset Date 12/14/14 History of Current Condition Pt presents to physical therapy s/p R TSA 12/14/2014 @ [facility]. Pt is R hand dominant. Pt uses a manual w/c for mobility, due to paraplegia at the level of T6. Pt is , mother is caregiver. Pt required a short term NG tube post surgery, then d/c to [facility] on 12/24/2014 . Pt then developed staph infection while at [facility]. Pt d/ c home and started PT on . Pt initiated outpatient physical therapy April 04, 2015. ADDENDUM: pt with clearance from PCP to return to/continue PT s/p of her first child on November 24, 2017. PT-OP-C Subjective Start: 07/18/17 09:01 Freq: Status: Active Protocol: Document 08/20/18 14:30 RCC (Rec: 08/22/18 11:25 RCC [email or web address]) OP-PT Subjective Patient Comments Patient Comments Pt reports less discomfort in anterior shoulder with lifting her son, but still fatigues quickly. PT-OP-F Manual Assessment Start: 08/31/17 13:42 Freq: Status: Active Protocol: Document 06/12/18 13:45 RCC (Rec: 06/12/18 15:20 RCC [email or web address]) Manual Assessments Soft Tissue Assessment Soft Tissue Mobility Assessment mild TTP: long head biceps, anterior deltoid PT-OP-G Mobility & Gait Start: 08/31/17 13:42 Freq: Status: Active Protocol: Document 08/12/18 14:33 RCC (Rec: 08/12/18 15:59 RCC [email or web address]) OP Mobility Evaluation Wheelchair Management Assessment Details indep. transfer w/c to car; set up for w/c breakdown, unable to fold up w/c indep. PT-OP-J Posture/Palpation/Skin Start: 08/31/17 13:42 Freq: Status: Active Protocol: Document 08/29/17 09:45 RCC (Rec: 08/31/17 14:13 RCC [email or web address]) Palpation Assessment Location One Palpation Location R biceps long head and tendon Palpation Findings Tenderness Palpation Details negative Yuniel's sign, no bruising. Musculature intact. PT-OP-K Range of Motion Start: 07/18/17 09:01 Freq: Status: Active Protocol: Document 08/20/18 14:30 RCC (Rec: 08/22/18 11:25 RCC [email or web address]) Shoulder Goniometric Range of Motion Shoulder Right Active Testing Position Sitting Flexion 112 Abduction 115 External Rotation at 45 degrees 42 Abduction Right Passive Testing Position Supine Flexion 160 Abduction 165 External Rotation at 45 degrees 55 Abduction PT-OP-M Strength Start: 08/31/17 13:42 Freq: Status: Active Protocol: Document 08/20/18 14:30 RCC (Rec: 08/22/18 11:25 RCC [email or web address]) Shoulder Strength Shoulder Manual Muscle Testing Right Flexion 4 Good Abduction (C5) 4 Good External Rotation 4 Good Internal Rotation 4+ Good+ PT-OP-Q Treatments Start: 07/18/17 09:01 Freq: Status: Active Protocol: Document 08/20/18 14:30 RCC (Rec: 08/22/18 11:28 RCC [email or web address]) Therapeutic Exercises Supine Exercises IR/ER Supine Exercise Name IR/ER @ 45 deg abduction Side right Resistance 2 lb Reps/Minutes 1x20 supine punches Side bilateral Resistance 2 lbs Reps/Minutes 1x25 flexion Supine Exercise Name shoulder flexion Side right Resistance 2 lb Reps/Minutes 1x20 horiz. abduction Supine Exercise Name horizontal abduction Side right Resistance 2 lb Reps/Minutes 15 Comments horizontal abduction followed by GH abduction and back to neutral Sitting Exercises flexion Sitting Exercise Name shoulder flexion Side bilateral Resistance 1 lb Reps/Minutes x15 Comments flexion R to 100 deg. abduction Sitting Exercise Name shoulder abduction Side bilateral Resistance 1 lb Reps/Minutes x10 Comments abduction R to 95 deg Manual Therapy Treatment Joint Mobilizations [address] joint Direction lateral, upward rotation, medial Grade IV Body Position Supine Manual Techniques 1 Type PROM- flexion, abduction, ER, IR Body Location R shoulder Body Position Supine Reps/Duration 10 each Other Other Manual Treatments MMT and ROM R shoulder PT-OP-R Modalities Start: 07/18/17 09:01 Freq: Status: Active Protocol: Document 08/20/18 14:30 RCC (Rec: 08/22/18 11:28 RCC [email or web address]) Hot Pack/Cold Pack Treatment Cold Pack Location R shoulder Patient Position Supine Treatment Duration (minutes) 10 Comments bolster PT-OP-T Assessment and Plan Start: 07/18/17 09:01 Freq: Status: Active Protocol: Document 08/20/18 14:30 RCC (Rec: 08/22/18 11:25 RCC [email or web address]) Physical Therapy Assessment Goals car transfer Impairment pt unable to manage w/c to place in/out of car for indep with driving Short Term Goal (STG) Pt will be able to get w/c in/ out of car with min A STG Duration 6 weeks Longterm Goal (LTG) Pt will be able to get w/c in/ out of car with supervision only for improved independence with the ability to travel without assistance. LTG Duration 12 weeks holding her child Impairment unable to hold her child for > 5 min without increased R shoulder pain Short Term Goal (STG) pt will report being able to hold her child for 10 min without increased R shoulder pain. STG Duration achieved 08/12/18 Electronic Security Specialist Goal (LTG) pt will report being able to hold her child for 20 min without increased R shoulder pain. LTG Duration achieved 08/12/18 3 Impairment R shoulder ROM Electronic Security Specialist Goal (LTG) R shoulder AROM: flexion 165 degrees (deg.), abduction 165 deg, ER with arm at side 60 deg, IR with arm at side 60 deg. 05/15/18: good progress since 08/12/18: some progress LTG Duration 12 weeks 2 Impairment RUE weakness Electronic Security Specialist Goal (LTG) R scapular elevation 5/5 R shoulder abduction, flexion, extension, ER, IR 4+/5 R elbow flexion, extension 4+/ 5 R wrist flexion, extension 4+/ 5 05/15/18: good progress since 08/12/18: R shoulder abduction, ER to 4/5 and IR to 4+/5 LTG Duration 12 weeks One Impairment Pt is unable to get on/off floor without assistance to play with her child Short Term Goal (STG) Pt will be able to get on/off floor with Min A to play with her child. STG Duration achieved 08/12/18 Longterm Goal (LTG) Pt will be able to get on/off floor with supervision to play with her child. 08/12/18: able to get on/off floor with min assist using floor to mat to couch to chair . LTG Duration 12 weeks Progress Towards Goals Progress Comments no changes in goals d/t reassessment occurred just 1 week ago. Assessment Summary Assessment No significant changes since last week with objective findings. Pt at this time is requesting d/c from this facility, as this caption writer/ physical therapist is transferring to another outpatient clinic. Pt wishes to potentially follow this physical therapist to the new clinic if deemed medically necessary by her PCP. She will require a new referral for physical therapy and will need a new initial evaluation of physical therapy as well. Physical Therapy Plan Discharge Physical Therapy Discharge Reasons Patient Request Discharge Comments requesting to follow this caption writer/physical therapist to new clinic location. Will need new referral if medically necessary deemed by PCP
== END 2018-09-04 10:55 | disposition home or self-care (01) ==
LOC: PHYS 14:30
PROVIDERS: Family Provider Family Medicine; PCP Family Medicine; Visit Provider Family Medicine
DX: M25.511 Pain in right shoulder (principal); Z96.619 Presence of unspecified artificial shoulder joint; M25.611 Stiffness of right shoulder, not elsewhere classified; M62.81 Muscle weakness (generalized); R29.3 Abnormal posture; R20.0 Anesthesia of skin; M25.552 Pain in left hip
CPT/HCPCS: 97010; 97110; 97140; 97530

== ENCOUNTER → 2020-03-23 12:27 | Outpatient (CLI) | payer MEDICARE, SELFPAY ==
--- NOTE | 2020-03-23 | DI.RAD.S_ITS ---
PROCEDURE: XR ACUTE ABDOMEN SERIES INDICATIONS: DIARRHEA TECHNIQUE: One view chest and two views of the abdomen were acquired. COMPARISON: [facility], , ABDOMEN ACUTE SERIES, 05/18/2015, 14:53. FINDINGS: Surgical changes and devices: Status post right shoulder arthroplasty. Right-sided ventriculoperitoneal shunt tubing extends into the lower right abdomen and coils towards the left side of the pelvis with the distal tip projecting in the right lower abdomen. Its exact position is obscured by overlying biomedical engineering technician. An IUD projects in the pelvis. Chest: There are 2 symmetric nodular densities projecting in the lower lung zones bilaterally likely representing nipple shadows. They measure approximately 1.5 cm in size. Lungs are otherwise clear. Heart size is normal. No pleural effusions. No pneumoperitoneum. Abdomen: Bowel gas pattern is nonobstructive with moderate gaseous distention of the transverse and proximal descending colon. Extensive fecal material is noted throughout the lower abdomen and pelvis. No suspicious bowel wall thickening by radiographic evaluation. No suspicious calcifications. Visualized solid organ contours appear normal. Bones: No suspicious bony lesions. IMPRESSION: 1. Extensive amount of fecal material projecting in the lower abdomen and pelvis with moderate gaseous distension of the transverse and proximal descending colon. Findings are likely related to constipation. Otherwise, no evidence for bowel obstruction. 2. No acute cardiopulmonary abnormalities. 3. There are 2 nodular, symmetric densities projecting in the lower lung zones bilaterally likely representing the nipple shadows. These were not present on the comparison radiographs dated May 18, 2015. Consider dedicated frontal view of the chest with nipple markers to confirm. Dictated by: Marcello Mejia M.D. on 03/23/2020 at 18:41 Approved by: Marcello Mejia M.D. on 03/23/2020 at 18:48
== END ==
PROVIDERS: Family Provider Family Medicine; PCP Family Medicine; Referring Provider Family Medicine; Visit Provider Family Medicine
DX: R19.7 Diarrhea, unspecified (principal); R91.8 Other nonspecific abnormal finding of lung field
CPT/HCPCS: 74022

== ENCOUNTER 2020-04-18 09:48 | Emergency (ER) | payer MEDICARE, SELFPAY ==
[2020-04-18 09:50] VITALS: BP 117/78; PULSE 108; RESP 14; TEMP 36.6; O2SAT 100
[2020-04-18] MEDS: TET,DIPH,PERTUSS(ACELL),VAC/PF 0.5 ML SYRINGE IM (10:31)
--- NOTE | 2020-04-18 10:33 | PC.NURSE ---
wound on rt thumb is healing but does have small swelling noted. pt states pain is worsening.
--- NOTE | 2020-04-18 10:41 | ED_ITS ---
HPI - Wound/Laceration <LEOBARDO Alvarez - Last Filed: 04/18/20 15:12> General Chief Complaint: Wound/Laceration Stated Complaint: possible infection in finger after cutting it. Time Seen by Provider: 04/18/20 10:15 Source: patient Limitations: no limitations History of Present Illness HPI narrative: 34yo female with a history of paraplegia, neurogenic bladder, restrictive lung disease, and autonomic dysreflexia presents to the ED with concerns for an infection in her left thumb. Patient states she cut her thumb approximately 10 days ago. She noticed the past 2-3 days the wound has become more red and painful and swollen. She denies any fevers, chills, difficulty moving her thumb, abdominal pain, cough, shortness of breath, or any other concerns. She denies taking blood thinners. She denies allergies to medications. Unknown last Tdap. Related Data Previous Rx's Medication Instructions Recorded cephalexin 500 mg PO QID 7 Days #28 cap 04/18/20 mupirocin 1 applic TOPICAL BID #15 g 04/18/20 Allergies Allergy/AdvReac Type Severity Reaction Status Date / Time latex [LATEX] Allergy Mild RASHES Verified 04/18/20 09:55 meperidine [From DEMEROL] Allergy Mild HIVES Verified 04/18/20 09:55 Review of Systems <LEOBARDO Alvarez - Last Filed: 04/18/20 15:12> Review of Systems Narrative: REVIEW OF SYSTEMS: GENERAL: Denies fever or chills. HENT: Denies head trauma. MUSCULOSKELETAL: Denies further injury. INTEGUMENTARY: Complains of laceration to left thumb, see HPI. NEURO: Denies numbness or tingling. Patient History <LEOBARDO Alvarez - Last Filed: 04/18/20 15:12> Medical History Autonomic dysreflexia Hypothyroid Neurogenic bladder Paraplegic spinal paralysis Restrictive lung disease Social History Smoking Status: Unknown if ever smoked Smoking Status: Unknown if ever smoked alcohol intake frequency: holidays/special occasions only Substance Use Type: does not use Exam <LEOBARDO Alvarez - Last Filed: 04/18/20 15:12> Initial Vital Signs Initial Vital Signs: Vital Signs Temperature 97.8 F 04/18/20 09:50 Pulse Rate 108 H 04/18/20 09:50 Respiratory Rate 14 04/18/20 09:50 Blood Pressure 117/78 04/18/20 09:50 Pulse Oximetry 100 04/18/20 09:50 PHYSICAL EXAMINATION: GENERAL: Awake and alert. HENT: Normocephalic, atraumatic. RESPIRATORY: Normal respiratory rate, trachea midline, airway patent. No stridor, nasal flaring or accessory muscle use. MUSCULOSKELETAL: Normal gait and coordination. Equal tone and mass bilaterally. EXTREMITIES: CMS intact. Moves all extremities. SKIN: Warm, dry, soft, appropriate color for ethnicity. An area of approximately 3 cm from 1 cm to radial aspect of left some not affecting nail appears to be healing with scar tissue. Increased erythema to nail aspect of wound, no purulent drainage, minimal swelling. Full range of motion of thumb including dip joint. NEURO: Alert and Oriented X 3. Good coordination. PSYCH: Appropriate affect and mood. <Octavia Garcia DO - Last Filed: 04/19/20 08:29> Initial Vital Signs Initial Vital Signs: Vital Signs Temperature 97.8 F 04/18/20 09:50 Pulse Rate 108 H 04/18/20 09:50 Respiratory Rate 14 04/18/20 09:50 Blood Pressure 117/78 04/18/20 09:50 Pulse Oximetry 100 04/18/20 09:50 Course <LEOBARDO Alvarez - Last Filed: 04/18/20 15:12> Orders Ordered: Discontinued Medications Diphtheria/Tetanus/Acell Pertussis (Tet,Diph,Pertuss(Acell),Vac/Pf 0.5 Ml Syringe) 0.5 ml IM .ONCE ONE Stop: 04/18/20 10:27 Last Admin: 04/18/20 10:31 Dose: 0.5 ml Documented by: MARYOTEM Vital Signs Vital signs: Vital Signs - 8 hr 04/18/20 09:50 04/18/20 10:59 Temperature 97.8 F Pulse Rate 108 H 88 Respiratory Rate 14 16 Blood Pressure 117/78 123/70 Pulse Oximetry 100 99 <Octavia Garcia DO - Last Filed: 04/19/20 08:29> Orders Ordered: Discontinued Medications Diphtheria/Tetanus/Acell Pertussis (Tet,Diph,Pertuss(Acell),Vac/Pf 0.5 Ml Syringe) 0.5 ml IM .ONCE ONE Stop: 04/18/20 10:27 Last Admin: 04/18/20 10:31 Dose: 0.5 ml Documented by: LAUREN Vital Signs Vital signs: Vital Signs - 8 hr 04/18/20 09:50 04/18/20 10:59 Temperature 97.8 F Pulse Rate 108 H 88 Respiratory Rate 14 16 Blood Pressure 117/78 123/70 Pulse Oximetry 100 99 [facility] - Wound/Laceration <MARKEL AlvarezP - Last Filed: 04/18/20 15:12> Medical Records Attestation: I reviewed the patient's medical records. Lab Data Attestation: I reviewed the patient's lab results. MDM Narrative Medical decision making narrative: History and examination concerning for cellulitis given recent laceration. Patient's Tdap was updated. She was prescribed cephalexin. She was also given mupirocin to apply to the the wound. Less concern for abscess given lack of fluctuation. No concern for tenosynovitis or joint infection due to location of laceration and full range of motion of thumb. Return precautions given for new or worsening symptoms. She agreed to plan of care verbalized understanding. Discharge Plan Departure Patient Disposition: Home Clinical Impression: Cellulitis Qualifiers: Site of cellulitis: extremity Site of cellulitis of extremity: upper extremity Laterality: right Qualified Code(s): L03.113 - Cellulitis of right upper limb Instructions: DI for Wound Infection Activity Restrictions/Additional Instructions: Thank you for entrusting me with your care today. As discussed, it appears your cut is infected. I prescribed you some antibiotics, cephalexin, please take these as directed. Additionally, I have given you an ointment called mupirocin, apply this twice a day. Your prescriptions were sent to [facility] in [place]. Additionally, your Tdap was updated today. Return emergency department for any new or worsening symptoms such as severe swelling, fevers, increasing pain, increasing redness, or any concerns. Prescriptions: New mupirocin 2 % ointment 1 applic topical BID Qty: 15 RF: 0 cephalexin 500 mg capsule 500 mg PO QID 7 Days Qty: 28 RF: 0 Referrals: Cathleen Alfaro MD [Primary Care Provider] - <Octavia Garcia DO - Last Filed: 04/19/20 08:29> Cosign ED Attending Cosignature Attestation: I was immediately available in the department for consultation. Documentation has been reviewed.
[2020-04-18 10:59] VITALS: BP 123/70; PULSE 88; RESP 16; O2SAT 99
== END 2020-04-18 10:59 | disposition home or self-care (01) ==
PROVIDERS: Emergency Provider Nurse Practitioner; Family Provider Family Medicine; PCP Family Medicine
DX: L03.113 Cellulitis of right upper limb (principal); Z23 Encounter for immunization
CPT/HCPCS: 90471; 99281; 99283; 90715

== ENCOUNTER → 2020-04-27 09:33 | Outpatient (CLI) | payer MEDICARE, SELFPAY ==
--- NOTE | 2020-04-27 | DI.RAD.S_ITS ---
PROCEDURE: XR ABDOMEN 1V INDICATIONS: R14.0 TECHNIQUE: One view of the abdomen acquired. COMPARISON: [facility], CR, XR ACUTE ABDOMEN SERIES, 03/23/2020, 12:47. 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 Intrauterine device is again noted. Ventriculoperitoneal shunt tubing is present within the abdomen and pelvis with the distal tip projecting over the lower midline pelvis on today's study. Bowel: Bowel gas pattern is nonobstructive. Persistent large amount of fecal material seen throughout the imaged colon and rectum.. Soft tissues: No suspicious abdominal calcifications. Visualized solid organ contours appear normal in size. Bones: No suspicious bony lesions. IMPRESSION: No significant change in appearance of extensive amount of fecal material projecting throughout the colon and rectum. Findings are likely related to obstipation. No evidence for bowel obstruction. Dictated by: Marcello Mejia M.D. on 04/27/2020 at 13:28 Approved by: Marcello Mejia M.D. on 04/27/2020 at 13:31
== END ==
PROVIDERS: Family Provider Family Medicine; PCP Family Medicine; Referring Provider Internal Medicine Gastroenterology; Visit Provider Internal Medicine Gastroenterology
DX: R14.0 Abdominal distension (gaseous) (principal)
CPT/HCPCS: 74018